=== PATIENT | male | born 1950 | race Caucasian/White ===

== ENCOUNTER 2023-02-25 22:51 | Inpatient (IN) ==
--- NOTE | 2023-02-25 23:10 | Emergency Department Note ---
History of Present Illness General Chief complaint: Weakness Stated complaint: INCREASED WEAKNESS/FALLS/ HEAD INJURY Time Seen by Provider: 02/25/23 22:53 History of Present Illness 72-year-old male presents emergency department he has a history of Parkinson's he states has been generally weak for the past 2 days. Patient states that he has had 3 falls in the past 2 days. Patient typically uses a cane or walker and a wheelchair at home. Patient states that he fell this evening and hit his head. Patient denies a headache denies numbness or tingling denies neck pain. Patient is not on blood thinners. Patient states that he felt generally weak. There were no other complaints. No other mitigating or alleviating factors Home Medications Medication Instructions Recorded Confirmed Type aspirin 81 mg tablet,delayed 81 mg PO DAILY 09/27/19 02/26/23 History release (Adult Low Dose Aspirin) capsaicin 0.1 % topical cream 1 appln topical TID 09/27/19 02/26/23 History docusate sodium 100 mg capsule 100 mg PO BID constipation 09/27/19 02/26/23 History fluticasone propionate 50 1 sprays intranasal DAILY allergic 09/27/19 02/26/23 History mcg/actuation nasal rhinitis spray,suspension glucose 4 gram chewable tablet 4 gm PO Q15M PRN glucose 09/27/19 02/26/23 History (Dex4 Glucose) ketoconazole 2 % topical cream 1 appln topical BID 09/27/19 02/26/23 History lidocaine 5 % topical cream 1 appln topical BID PRN Skin 09/27/19 02/26/23 History Cleansing metformin 500 mg tablet 1,000 mg PO BID 09/27/19 02/26/23 History multivitamin 1 tab PO DAILY supplementation 09/27/19 02/26/23 History cholecalciferol (vitamin D3) 25 2,000 unit PO DAILY 10/14/22 02/26/23 History mcg (1,000 unit) capsule duloxetine 20 mg capsule,delayed 20 mg PO BID 10/14/22 02/26/23 History release empagliflozin 10 mg tablet 10 mg PO DAILY 10/14/22 02/26/23 History omeprazole 20 mg capsule,delayed 20 mg PO DAILY 10/14/22 02/26/23 History release quetiapine 100 mg tablet (Seroquel) 50 mg PO HS 10/14/22 02/26/23 History ropinirole 0.25 mg tablet 0.25 mg PO BID #60 tabs 10/14/22 02/26/23 Rx semaglutide (weight loss) 0.5 0.5 mg subcut Q7D 10/14/22 02/26/23 History mg/0.5 mL subcutaneous pen injector carbidopa 25 mg-levodopa 100 mg 2 tab PO QID 90 days #720 tabs 12/20/22 02/26/23 Rx tablet acetaminophen 325 mg capsule 650 mg PO TID PRN Pain 02/06/23 02/26/23 History (Tylenol) albuterol sulfate 90 mcg/actuation 2 inh inhalation Q6H PRN Shortness 02/06/23 02/26/23 History breath activated powder inhaler Of Breath Or Wheezing diclofenac sodium 1 % topical gel 4 g topical QID PRN Pain 02/06/23 02/26/23 History (Arthritis Pain (diclofenac)) food supplemt, lactose-reduced 1 ea PO DAILY 02/06/23 02/26/23 History (Ensure oral liquid) gabapentin 100 mg capsule 100 mg PO .COMPLEX 02/06/23 02/26/23 History lactulose 10 gram/15 mL (15 mL) 20 g PO BID PRN .. 02/06/23 02/26/23 History oral solution lisinopril 5 mg tablet 5 mg PO DAILY 02/06/23 02/26/23 History magnesium oxide 420 mg tablet 420 mg PO DAILY 02/06/23 02/26/23 History metoprolol succinate 25 mg 25 mg PO DAILY 02/06/23 02/26/23 History tablet,extended release 24 hr nut.tx.gluc.intol,lac-free,soy 1 ea PO DAILY 02/06/23 02/26/23 History (Glucerna oral liquid) sildenafil 100 mg tablet 100 mg PO DAILY PRN erectile 02/06/23 02/26/23 History dysfunction simvastatin 80 mg tablet 40 mg PO DAILY 02/06/23 02/26/23 History tizanidine 4 mg capsule 2 mg PO TID PRN back pain 02/06/23 02/26/23 History Allergies Allergy/AdvReac Type Severity Reaction Status Date / Time cefuroxime AdvReac Unknown Unknown Verified 02/26/23 01:20 fluphenazine [From Prolixin] AdvReac Unknown Unknown Verified 02/26/23 01:20 Past Med/Surg History Medical History (Updated 02/26/23 @ 00:34 by Valente Rollins DO) Bipolar disorder Cervical spinal stenosis Diabetes mellitus Erectile dysfunction GERD (gastroesophageal reflux disease) Hyperlipidemia Insomnia Lung cancer Mild cognitive impairment Paranoid schizophrenia Tremor Surgical History S/P colonoscopy Family History Other Adopted child No pertinent family history Social History Smoking Status: Former smoker Preferred Language: Belarusian Feels Safe at Home: Yes Review of Systems A total of 10 systems reviewed and were otherwise negative Cardiovascular: no chest pain Gastrointestinal: no abdominal pain Musculoskeletal: no back pain Neurologic: + generalized weakness and + tremor(s) Physical Exam Vital Signs Vital Signs - 24 hr 02/25/23 23:04 02/25/23 23:04 02/25/23 23:04 Temperature 36.9 C Temperature Source Temporal Artery Scan Pulse Rate 82 Pulse Rate [Right Finger] 81 Respiratory Rate 24 17 Respiratory Effort / Characteristics Non-Labored Spontaneous Respiratory Depth Normal Blood Pressure 130/104 H Blood Pressure [Right Arm] Blood Pressure Mean 112 Blood Pressure Mean [Right Arm] Pulse Oximetry 96 96 96 Oxygen Delivery Method Room Air Room Air Room Air Sepsis Recent Fever Within 48 Hours No Sepsis New/Unexplained Change in Mental Status N/A Sepsis Action Taken by Nursing No Action Required 02/25/23 22:58 02/26/23 00:22 02/26/23 00:26 Temperature Temperature Source Pulse Rate 76 Pulse Rate [Right Finger] 86 Respiratory Rate 18 Respiratory Effort / Characteristics Respiratory Depth Blood Pressure Blood Pressure [Right Arm] 115/74 Blood Pressure Mean Blood Pressure Mean [Right Arm] 87 Pulse Oximetry 92 Oxygen Delivery Method Sepsis Recent Fever Within 48 Hours Sepsis New/Unexplained Change in Mental Status Sepsis Action Taken by Nursing 02/26/23 01:05 Temperature Temperature Source Pulse Rate Pulse Rate [Right Finger] 73 Respiratory Rate 16 Respiratory Effort / Characteristics Respiratory Depth Blood Pressure Blood Pressure [Right Arm] 105/59 L Blood Pressure Mean Blood Pressure Mean [Right Arm] 74 Pulse Oximetry 93 Oxygen Delivery Method Sepsis Recent Fever Within 48 Hours Sepsis New/Unexplained Change in Mental Status Sepsis Action Taken by Nursing GENERAL: Patient is awake alert in no acute distress patient is resting comfortably and showing no signs of anxiety EYES: The conjunctivae are clear. The pupils are round and reactive. EARS, NOSE, MOUTH AND THROAT: The nose is without any evidence of any deformity. Mucous membranes are moist. Tongue is midline. Head exam reveals an abrasion to the forehead with a small area of hematoma NECK: The neck is nontender and supple. RESPIRATORY: Normal respiratory effort is noted there is no evidence of wheezing rhonchi or rales CARDIOVASCULAR: Regular rate and rhythm noted there no murmurs rubs or gallops normal S1 normal S2. GASTROINTESTINAL: The abdomen is soft. Abdomen is nontender. Rectal exam the patient was heme-negative with normal-appearing stool BACK: No midline tenderness or or step-off noted range of motion in flexion extension as well as rotation no signs of muscle spasm noted MUSCULOSKELETAL/EXTREMITIES: There is no evidence of gross deformity full range of motion is noted in the hips and shoulders. SKIN: There is no obvious evidence of any rash. There are no petechiae, pallor or cyanosis noted. NEUROLOGIC: Patient is awake alert and oriented x3 strength is symmetric; GCS of 15 Course Reevaluation(s) Reevaluation #1: Patient was given IV fluids patient remained stable condition throughout emergency department evaluation Time: 01:02 Consultations Consultation #1: Case was discussed with the [facility] Hospitalist for admission Time: 01:02 Administered Medications Discontinued Medications Sodium Chloride (Nss 1000ml) 1,000 mls @ 999 mls/hr IV .Q1H1M ONE Stop: 02/26/23 00:46 Last Infusion: 02/26/23 01:04 Dose: 0 mls/hr Documented By: Admin: 02/26/23 00:10 Dose: 999 mls/hr Documented By: TBS Critical Care Time Critical Care Time: Yes Total Critical Care Time: 35 I have personally spent greater than 35 minutes of critical care time in the direct management of this patient. This includes bedside care, interpretation of diagnostic studies, and testing, discussion with consultants, patient, and family members, and other required patient management activities. These minutes are in excess of all separately billable procedures. Medical Decision Making Medical Records Attestation: I reviewed the patient's medical records. Home Medications Current Medication List: was personally reviewed by me Laboratory Data Attestation: I reviewed the patient's lab results. Patient had repeat CBC that shows anemia, patient has elevated BUN, elevated blood sugar as interpreted by me 02/25/23 23:00 02/25/23 23:00 Lab Results 02/25/23 02/25/23 02/25/23 Range/Units 23:00 23:00 23:00 WBC 12.29 H (4.8-10.8) K/ul RBC 2.38 L (4.70-6.10) M/uL Hgb 7.4 L (14.0-18.0) g/dl Hct 22.7 L (42.0-52.0) % MCV 95.4 (80.0-100.0) fL MCH 31.1 (25.0-34.0) pg MCHC 32.6 (32.0-36.0) g/dL RDW Std Deviation 49.3 H (36.4-46.3) fL RDW Coeff of Angela 14.6 H (11.5-14.5) % Plt Count 281 (130-400) K/uL MPV 10.8 (9.4-12.4) fL Immature Gran % (Auto) 0.7 % Neut % (Auto) 84.6 % Lymph % (Auto) 8.7 % [place] % (Auto) 4.6 % Eos % (Auto) 0.8 % Baso % (Auto) 0.6 % Neut # (Auto) 10.40 H (1.40-6.50) K/uL Lymph # (Auto) 1.07 L (1.2-3.4) K/uL [place] # (Auto) 0.57 (0.11-0.59) K/uL Eos # (Auto) 0.10 (0-0.50) K/uL Baso # (Auto) 0.07 (0-0.2) K/uL Immature Gran # (Auto) 0.08 (0.01-0.20) K/uL Absolute Nucleated RBC 0.02 (0-0.12) K/uL Nucleated RBC % (auto) 0.2 % Ovalocytes 1+ PT (9.0-12.0) Seconds INR (0.9-1.1) Sodium 134 L (136-145) mmol/L Potassium 5.0 (3.5-5.1) mmol/L Chloride 100 (98-107) mmol/L Carbon Dioxide 23 (21-32) mmol/L Anion Gap 11 (3-11) BUN 42 H (6-23) mg/dl Creatinine 1.00 (0.6-1.4) mg/dl Est Cr Clr Drug Dosing 64.5 ml/min Est GFR ( Amer) 88.0 ml/min Est GFR (Non-Af Amer) 75.9 ml/min BUN/Creatinine Ratio 42.0 H (10-20) Glucose 275 H (70-99(Fasting)) mg/dl Calcium 9.6 (8.6-10.3) mg/dl Magnesium 1.6 L (1.7-2.4) mg/dl Total Bilirubin 0.3 (0.2-1.0) mg/dl Direct Bilirubin 0.0 (0-0.2) mg/dl AST 20 (13-39) U/L ALT 9 (7-52) U/L Alkaline Phosphatase 41 (34-104) U/L Troponin I High Sens 33.9 H (0-20) pg/ml Total Protein 6.3 (6.0-8.3) gm/dl Albumin 3.8 (3.4-5.0) gm/dl Procalcitonin < 0.05 (0-0.5) ng/ml SARS-CoV-2, RNA, NAAT (NEGATIVE) 02/25/23 02/26/23 02/26/23 Range/Units 23:03 00:03 00:03 WBC 13.13 H (4.8-10.8) K/ul RBC 2.25 L (4.70-6.10) M/uL Hgb 7.2 L (14.0-18.0) g/dl Hct 21.6 L (42.0-52.0) % MCV 96.0 (80.0-100.0) fL MCH 32.0 (25.0-34.0) pg MCHC 33.3 (32.0-36.0) g/dL RDW Std Deviation 49.3 H (36.4-46.3) fL RDW Coeff of Angela 14.6 H (11.5-14.5) % Plt Count 263 (130-400) K/uL MPV 10.8 (9.4-12.4) fL Immature Gran % (Auto) 0.8 % Neut % (Auto) 85.9 % Lymph % (Auto) 8.9 % [place] % (Auto) 3.5 % Eos % (Auto) 0.3 % Baso % (Auto) 0.6 % Neut # (Auto) 11.28 H (1.40-6.50) K/uL Lymph # (Auto) 1.17 L (1.2-3.4) K/uL [place] # (Auto) 0.46 (0.11-0.59) K/uL Eos # (Auto) 0.04 (0-0.50) K/uL Baso # (Auto) 0.08 (0-0.2) K/uL Immature Gran # (Auto) 0.10 (0.01-0.20) K/uL Absolute Nucleated RBC (0-0.12) K/uL Nucleated RBC % (auto) % Ovalocytes 1+ PT 12.4 H (9.0-12.0) Seconds INR 1.1 (0.9-1.1) Sodium (136-145) mmol/L Potassium (3.5-5.1) mmol/L Chloride (98-107) mmol/L Carbon Dioxide (21-32) mmol/L Anion Gap (3-11) BUN (6-23) mg/dl Creatinine (0.6-1.4) mg/dl Est Cr Clr Drug Dosing ml/min Est GFR ( Amer) ml/min Est GFR (Non-Af Amer) ml/min BUN/Creatinine Ratio (10-20) Glucose (70-99(Fasting)) mg/dl Calcium (8.6-10.3) mg/dl Magnesium (1.7-2.4) mg/dl Total Bilirubin (0.2-1.0) mg/dl Direct Bilirubin (0-0.2) mg/dl AST (13-39) U/L ALT (7-52) U/L Alkaline Phosphatase (34-104) U/L Troponin I High Sens (0-20) pg/ml Total Protein (6.0-8.3) gm/dl Albumin (3.4-5.0) gm/dl Procalcitonin (0-0.5) ng/ml SARS-CoV-2, RNA, NAAT POSITIVE A* (NEGATIVE) Imaging Data Attestation: I personally reviewed and interpreted this imaging study as follows: My Impression: Chest x-ray interpreted by me patient is rotated, there is no obvious infiltrate or effusion no pneumothorax no rib fractures normal mediastinum CT of the brain per my interpretation is negative for intracranial hemorrhage Radiologist's Impression: Head CT 02/25/23 23:45 Exam(s): CT HEAD Without Contrast EXAM: CT Head Without Intravenous Contrast CLINICAL HISTORY: Reason for exam: head trauma. TECHNIQUE: Axial computed tomography images of the head/brain without intravenous contrast. CTDI is 38.97 mGy and DLP is 625.8 mGy-cm. Automated exposure control was utilized for the study. A dose lowering technique was utilized adhering to the principles of ALARA. COMPARISON: Dated 01/29/20 FINDINGS: Brain: The cerebral and cerebellar sulci are mildly prominent consistent with mild brain atrophy. There are a few areas of decreased attenuation in the deep cerebral white matter consistent with mild small vessel ischemic/degenerative changes. No hemorrhage. Ventricles: Unremarkable. No ventriculomegaly. Bones/joints: Unremarkable. No acute fracture. Soft tissues: Unremarkable. Vasculature: Atherosclerotic disease. Sinuses: Unremarkable as visualized. No acute sinusitis. Mastoid air cells: Unremarkable as visualized. No mastoid effusion. IMPRESSION: No acute findings in the head/brain. Electronically signed by: Vidal Guy MD 02/26/23 01:14 AM ECG Data Attestation: I personally reviewed and interpreted this ECG as follows: Additional Comments: EKG interpreted by me normal sinus rhythm rate of 82 left axis deviation right bundle branch block no obvious ST segment elevation or depression as interpreted by me Treatments ordered by me, interpreted as normal sinus rhythm rate of 80 MDM Narrative Medical decision making differential diagnosis includes fall, head trauma, electrolyte abnormality, occult infection Plan is to check labs, CT, observe EMS medical report was reviewed by me Patient was found to be anemic had heme-negative Hemoccult has an elevated BUN elevated blood sugar and is COVID-positive. Patient will be admitted for fall with anemia and hyponatremia and hyperglycemia Impression & Plan Anemia, Weakness, Fall, COVID-19, Acute dehydration, Acute hyperglycemia Discharge Plan Visit Data Chief Complaint: Weakness Stated Complaint: INCREASED WEAKNESS/FALLS/ HEAD INJURY ED Provider: Valente Rollins Discharge Problem: Anemia, Weakness, Fall, COVID-19, Acute dehydration, Acute hyperglycemia Patient Disposition: Admitted As Inpatient Forms Stand Alone Forms: My [facility] Prescriptions Prescriptions: No Action carbidopa-levodopa 25-100 mg tablet 2 tab PO QID 90 Days Qty: 720 3RF magnesium oxide 420 mg tablet 420 mg PO DAILY lisinopril 5 mg tablet 5 mg PO DAILY Ensure Liquid 1 ea PO DAILY Glucerna Liquid 1 ea PO DAILY acetaminophen [Tylenol] 325 mg capsule 650 mg PO TID PRN (Reason: Pain) diclofenac sodium [Arthritis Pain (diclofenac)] 1 % gel 4 g topical QID PRN (Reason: Pain) Rx Instructions: apply to single knee, ankle, foot; for foot includes sole/toes/top of foot lactulose 10 gram/15 mL (15 mL) solution 20 g PO BID PRN (Reason: ..) albuterol sulfate 90 mcg/actuation aerosol powdr breath activated 2 inh inhalation Q6H PRN (Reason: Shortness Of Breath Or Wheezing) quetiapine [Seroquel] 100 mg tablet 50 mg PO HS omeprazole 20 mg capsule,delayed release(DR/EC) 20 mg PO DAILY duloxetine 20 mg capsule,delayed release(DR/EC) 20 mg PO BID empagliflozin 10 mg tablet 10 mg PO DAILY semaglutide (weight loss) 0.5 mg/0.5 mL pen injector 0.5 mg subcut Q7D Rx Instructions: Take q mon ropinirole 0.25 mg tablet 0.25 mg PO BID Qty: 60 5RF gabapentin 100 mg capsule 100 mg PO .COMPLEX Rx Instructions: 600mg QAM 600MG in the afternoon and 900mg QPM metoprolol succinate 25 mg tablet extended release 24 hr 25 mg PO DAILY simvastatin 80 mg tablet 40 mg PO DAILY aspirin [Adult Low Dose Aspirin] 81 mg tablet,delayed release (DR/EC) 81 mg PO DAILY capsaicin 0.1 % cream 1 appln TOP TID docusate sodium 100 mg capsule 100 mg PO BID fluticasone propionate 50 mcg/actuation spray,suspension 1 sprays INTNAS DAILY glucose [Dex4 Glucose] 4 gram tablet,chewable 4 gm PO Q15M PRN (Reason: glucose) ketoconazole 2 % cream 1 appln TOP BID lidocaine 5 % cream 1 appln TOP BID PRN (Reason: Skin Cleansing) metformin 500 mg tablet 1,000 mg PO BID multivitamin Tablet 1 tab PO DAILY cholecalciferol (vitamin D3) 25 mcg (1,000 unit) capsule 2,000 unit PO DAILY sildenafil 100 mg tablet 100 mg PO DAILY PRN (Reason: erectile dysfunction) tizanidine 4 mg capsule 2 mg PO TID PRN (Reason: back pain) Referrals Referrals: Goldie Watkins PA-C [Primary Care Provider] -
[2023-02-25 23:29] LABS: Basophils # (auto) 0.07 K/uL (0-0.2); Basophils % (auto) 0.6 %; Eosinophils % (auto) 0.8 %; Hematocrit (blood only) 22.7 % (42.0-52.0); Hemoglobin 7.4 g/dl (14.0-18.0); Immature Granulocytes # (auto) 0.08 K/uL (0.01-0.20); Immature Granulocytes % (auto) 0.7 %; Lymphocytes # (auto) 1.07 K/uL (1.2-3.4); Lymphocytes % (auto) 8.7 %; Mean Corpuscular Hemoglobin 31.1 pg (25.0-34.0); Mean Corpuscular Hgb Conc 32.6 g/dL (32.0-36.0); Mean Corpuscular Volume 95.4 fL (80.0-100.0); Mean Platelet Volume 10.8 fL (9.4-12.4); Monocytes # (auto) 0.57 K/uL (0.11-0.59); Monocytes % (auto) 4.6 %; Neutrophils % (auto) 84.6 %; Nucleated RBC # (auto) 0.02 K/uL (0-0.12); Nucleated RBC % (auto) 0.2 %; Platelet Count 281 K/uL (130-400); RDW Coefficient of Variation 14.6 % (11.5-14.5); RDW Standard Deviation 49.3 fL (36.4-46.3); Red Blood Count 2.38 M/uL (4.70-6.10); White Blood Count 12.29 K/ul (4.8-10.8)
[2023-02-25 23:44] LABS: Albumin Level 3.8 gm/dl (3.4-5.0); Bilirubin,Total 0.3 mg/dl (0.2-1.0); Calcium 9.6 mg/dl (8.6-10.3); Creatinine Clr Calc Pharmacy 64.5 ml/min; Est GFR (Non-African American) 75.9 ml/min; Magnesium 1.6 mg/dl (1.7-2.4); Total Protein 6.3 gm/dl (6.0-8.3)
[2023-02-25] MEDS ORDERED: SODIUM CHLORIDE 0.9% 1000ML 1,000 ML IV ONE (23:46)
[2023-02-25 23:50] LABS: Troponin I High Sensitivity 33.9 pg/ml (0-20)
[2023-02-26 00:01] LABS: Ovalocytes 1+
[2023-02-26 00:30] LABS: Basophils # (auto) 0.08 K/uL (0-0.2); Basophils % (auto) 0.6 %; Eosinophils # (auto) 0.04 K/uL (0-0.50); Eosinophils % (auto) 0.3 %; Hematocrit (blood only) 21.6 % (42.0-52.0); Hemoglobin 7.2 g/dl (14.0-18.0); Immature Granulocytes % (auto) 0.8 %; Lymphocytes # (auto) 1.17 K/uL (1.2-3.4); Lymphocytes % (auto) 8.9 %; Mean Corpuscular Hgb Conc 33.3 g/dL (32.0-36.0); Mean Platelet Volume 10.8 fL (9.4-12.4); Monocytes # (auto) 0.46 K/uL (0.11-0.59); Monocytes % (auto) 3.5 %; Neutrophils # (auto) 11.28 K/uL (1.40-6.50); Neutrophils % (auto) 85.9 %; Platelet Count 263 K/uL (130-400); RDW Coefficient of Variation 14.6 % (11.5-14.5); RDW Standard Deviation 49.3 fL (36.4-46.3); Red Blood Count 2.25 M/uL (4.70-6.10); White Blood Count 13.13 K/ul (4.8-10.8)
[2023-02-26 01:07] LABS: Ovalocytes 1+
[2023-02-26 01:11] LABS: INR 1.1 (0.9-1.1); Prothrombin Time 12.4 Seconds (9.0-12.0)
--- NOTE | 2023-02-26 01:15 | CT Scan Report ---
Exam(s): CT HEAD Without Contrast EXAM: CT Head Without Intravenous Contrast CLINICAL HISTORY: Reason for exam: head trauma. TECHNIQUE: Axial computed tomography images of the head/brain without intravenous contrast. CTDI is 38.97 mGy and DLP is 625.8 mGy-cm. Automated exposure control was utilized for the study. A dose lowering technique was utilized adhering to the principles of ALARA. COMPARISON: Dated 01/29/20 FINDINGS: Brain: The cerebral and cerebellar sulci are mildly prominent consistent with mild brain atrophy. There are a few areas of decreased attenuation in the deep cerebral white matter consistent with mild small vessel ischemic/degenerative changes. No hemorrhage. Ventricles: Unremarkable. No ventriculomegaly. Bones/joints: Unremarkable. No acute fracture. Soft tissues: Unremarkable. Vasculature: Atherosclerotic disease. Sinuses: Unremarkable as visualized. No acute sinusitis. Mastoid air cells: Unremarkable as visualized. No mastoid effusion. IMPRESSION: No acute findings in the head/brain. Electronically signed by: Vidal Guy MD 02/26/23 01:14 AM
--- NOTE | 2023-02-26 02:40 | CT Scan Report ---
Exam(s): CT ABDOMEN + PELVIS Without Contrast EXAM: CT Abdomen and Pelvis Without Intravenous Contrast CLINICAL HISTORY: Reason for exam: anemia. TECHNIQUE: Axial computed tomography images of the abdomen and pelvis without intravenous contrast. CTDI is 13.44 mGy and DLP is 702.62 mGy-cm. Automated exposure control was utilized for the study. A dose lowering technique was utilized adhering to the principles of ALARA. COMPARISON: No relevant prior studies available. FINDINGS: Lung bases: Unremarkable. No mass. No consolidation. Pleural space: Small right pleural effusion. ABDOMEN: Liver: Unremarkable. Gallbladder and bile ducts: Unremarkable. No calcified stones. No ductal dilation. Pancreas: Unremarkable. No ductal dilation. Spleen: Unremarkable. No splenomegaly. Adrenals: Unremarkable. No mass. Kidneys and ureters: The right kidney is malrotated. There are multiple nonobstructing right-sided intrarenal calculi. Stomach and bowel: There is significant distention of the stomach with oral contents. No mucosal thickening. PELVIS: Appendix: No findings to suggest acute appendicitis. Bladder: Unremarkable. No stones. Reproductive: Unremarkable as visualized. ABDOMEN and PELVIS: Intraperitoneal space: Unremarkable. No free air. No significant fluid collection. Bones/joints: Advanced degenerative disease of the thoracolumbar spine. No acute fracture. No dislocation. Soft tissues: Unremarkable. Vasculature: There is diffuse atherosclerotic calcification of the aorta and its major branch vessels. No abdominal aortic aneurysm. Lymph nodes: Unremarkable. No enlarged lymph nodes. IMPRESSION: No acute findings in the abdomen or pelvis. Electronically signed by: Vidal Guy MD 02/26/23 02:39 AM
--- NOTE | 2023-02-26 03:07 | Emergency Department Note ---
ED Visit Note Patient had an elevated lactate of 5.5 at the time of admission. This lab was not seen by me initially prior to admission. Patient had received 1 L of fluid and there is a repeat lactate level pending. Sepsis however. Case was discussed with the [facility] hospitalist for admission. Patient did receive another CT abdomen pelvis per the hospitalist request and the patient was deciding whether or not he wanted to be admitted. Patient is COVID-positive anemic dehydrated and hyperglycemic. .
--- NOTE | 2023-02-26 05:16 | History & Physical Report ---
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: Plan Progressive generalized weakness/increased frequency of falls/parkinsonism/neurologic gait disorder- Patient has been following with neurology in the outpatient setting Sinemet was decreased on 02/06/2023 Neurology consult not available till Monday, 02/27 Abnormal weight loss- Patient reports 30 pound weight loss since September At least in part is likely related to diabetic medications and diabetic control In particular the addition of Ozempic has resulted in significant weight loss per the patient and 's thoughts We will hold his oral medications of empagliflozin, metformin and semaglutide Place on Accu-Cheks with NovoLog SSI He likely should be started on long-acting insulin with a NovoLog SSI coverage Follow-up with endocrinology would be advisable Anemia- Hemoglobin 7.2 today, was 7.4 yesterday, and most recent otherwise on 11/01/2020 was 13.3 In association with 30 pound weight loss, would be suggestive of malnutrition, which may be at least in part pharmaceutically related with his diabetic medication regimen, and uncontrolled likely type 1 diabetes. Hemoccult testing negative in ED We will consult hematology and gastroenterology for their opinions Vital signs are stable with heart rate 72 and blood pressure 121/73 Elevated troponin- Troponin 33.9 on admission The patient will be admitted to telemetry for serial cardiac enzymes, serial EKG's, cardiac rhythm monitoring and a 2-D echocardiogram with Dopplers. Likely type II, supply/demand mismatch Lactic acidosis- Late report of lactate was 5.5, with improvement to 4.7, likely associated with uncontrolled diabetes Paranoid schizophrenia/anxiety depression/Parkinson's- Continue carbidopa levodopa, duloxetine, gabapentin and Seroquel History of Present Illness Chief Complaint: The patient presents to the emergency department with his , with complaint of increased general weakness and 3 falls over the past 2 days, reported that he typically uses a cane or walker and a wheelchair at home. Primary Care Provider: Goldie T. June, PA-C The patient is a 72-year-old male with a past medical history including Parkinson's, lung cancer, right lower lobe lobectomy, left upper lobe lobectomy, recent CT scan of chest at the [facility] negative for tumor recurrence, tremor, bipolar disorder, diabetes mellitus, GERD, hyperlipidemia, mild cognitive impairment, paranoid schizophrenia and a 30 pound weight loss since September. Significant laboratories: Troponin 33.9, COVID-19 positive, WBC 13.13, hemoglobin 7.2, hematocrit 21.6, glucose 275, lactate 5.5. Chest x-ray negative, CT scan of head negative, CT scan abdomen pelvis negative. Allergies Allergy/AdvReac Type Severity Reaction Status Date / Time cefuroxime AdvReac Unknown Unknown Verified 02/26/23 01:20 fluphenazine [From Prolixin] AdvReac Unknown Unknown Verified 02/26/23 01:20 Home Medications Medication Instructions Recorded Confirmed Type aspirin 81 mg tablet,delayed 81 mg PO DAILY 09/27/19 02/26/23 History release (Adult Low Dose Aspirin) capsaicin 0.1 % topical cream 1 appln topical TID 09/27/19 02/26/23 History docusate sodium 100 mg capsule 100 mg PO BID constipation 09/27/19 02/26/23 History fluticasone propionate 50 1 sprays intranasal DAILY allergic 09/27/19 02/26/23 History mcg/actuation nasal rhinitis spray,suspension glucose 4 gram chewable tablet 4 gm PO Q15M PRN glucose 09/27/19 02/26/23 History (Dex4 Glucose) ketoconazole 2 % topical cream 1 appln topical BID 09/27/19 02/26/23 History lidocaine 5 % topical cream 1 appln topical BID PRN Skin 09/27/19 02/26/23 History Cleansing metformin 500 mg tablet 1,000 mg PO BID 09/27/19 02/26/23 History multivitamin 1 tab PO DAILY supplementation 09/27/19 02/26/23 History cholecalciferol (vitamin D3) 25 2,000 unit PO DAILY 10/14/22 02/26/23 History mcg (1,000 unit) capsule duloxetine 20 mg capsule,delayed 20 mg PO BID 10/14/22 02/26/23 History release empagliflozin 10 mg tablet 10 mg PO DAILY 10/14/22 02/26/23 History omeprazole 20 mg capsule,delayed 20 mg PO DAILY 10/14/22 02/26/23 History release quetiapine 100 mg tablet (Seroquel) 50 mg PO HS 10/14/22 02/26/23 History ropinirole 0.25 mg tablet 0.25 mg PO BID #60 tabs 10/14/22 02/26/23 Rx semaglutide (weight loss) 0.5 0.5 mg subcut Q7D 10/14/22 02/26/23 History mg/0.5 mL subcutaneous pen injector carbidopa 25 mg-levodopa 100 mg 2 tab PO QID 90 days #720 tabs 12/20/22 02/26/23 Rx tablet acetaminophen 325 mg capsule 650 mg PO TID PRN Pain 02/06/23 02/26/23 History (Tylenol) albuterol sulfate 90 mcg/actuation 2 inh inhalation Q6H PRN Shortness 02/06/23 02/26/23 History breath activated powder inhaler Of Breath Or Wheezing diclofenac sodium 1 % topical gel 4 g topical QID PRN Pain 02/06/23 02/26/23 History (Arthritis Pain (diclofenac)) food supplemt, lactose-reduced 1 ea PO DAILY 02/06/23 02/26/23 History (Ensure oral liquid) gabapentin 100 mg capsule 100 mg PO .COMPLEX 02/06/23 02/26/23 History lactulose 10 gram/15 mL (15 mL) 20 g PO BID PRN .. 02/06/23 02/26/23 History oral solution lisinopril 5 mg tablet 5 mg PO DAILY 02/06/23 02/26/23 History magnesium oxide 420 mg tablet 420 mg PO DAILY 02/06/23 02/26/23 History metoprolol succinate 25 mg 25 mg PO DAILY 02/06/23 02/26/23 History tablet,extended release 24 hr nut.tx.gluc.intol,lac-free,soy 1 ea PO DAILY 02/06/23 02/26/23 History (Glucerna oral liquid) sildenafil 100 mg tablet 100 mg PO DAILY PRN erectile 02/06/23 02/26/23 History dysfunction simvastatin 80 mg tablet 40 mg PO DAILY 02/06/23 02/26/23 History tizanidine 4 mg capsule 2 mg PO TID PRN back pain 02/06/23 02/26/23 History Past Med/Surg History Medical History (Updated 02/26/23 @ 05:27 by Antohny Howell MD) Bipolar disorder Cervical spinal stenosis Diabetes mellitus Erectile dysfunction GERD (gastroesophageal reflux disease) Hyperlipidemia Insomnia Lung cancer Mild cognitive impairment Neurologic gait disorder Paranoid schizophrenia Tremor Surgical History S/P colonoscopy Family History Other Adopted child No pertinent family history Social History Smoking Status: Former smoker Preferred Language: Czech Feels Safe at Home: Yes Review of Systems Review of Systems: The patient denies chest pain, palpitations, shortness of breath, dyspnea on exertion, cough, lower extremity swelling, sore throat, fevers, chills, sweats, nausea, vomiting, diarrhea , constipation, abdominal pain, pelvic pain, blood in urine or stool, dysuria, urinary frequency or urgency, lightheadedness, dizziness, headache, memory loss, loss of consciousness, abnormal bruising or bleeding, imbalance, focal weakness, numbness or tingling in arms or legs, back or neck pain, or night sweats. The review of systems is otherwise negative other than for that already noted above, and at least 10 systems have been reviewed. Physical Exam Physical Exam: The patient is awake, alert and oriented 3, looks malnourished, normocephalic and atraumatic, lying in bed and in no acute distress. HEENT--PERRL, EOMI, mucous membranes and oropharynx dry. Neck--supple. No JVD. No bruits. Thyroid normal, trachea midline, no adenopathy. Heart--normal S1 and S2. No murmurs, rubs or gallops. Lungs--clear bilaterally, no respiratory distress, no accessory muscle use. Abdomen--normal bowel sounds and soft. Nontender. Nondistended, no hernias or masses, no organomegaly. Extremities--no cyanosis or clubbing. No edema. Dermatologic--normal skin turgor, normal color, no abnormal lymph nodes, no rash. Neurologic--cranial nerves II through XII grossly intact. Rheumatologic--normal range of motion. Psychiatric--normal affect. Results & Data Results & Data Vital Signs (Past 12 Hours) Vital Signs Temp Pulse Pulse Resp BP BP Pulse Ox 02/26/23 04:24 95 02/26/23 04:12 72 15 98 02/26/23 03:23 69 18 132/77 98 02/26/23 04:18 121/73 02/26/23 02:54 69 02/26/23 02:39 75 16 94 02/26/23 02:00 88 16 122/66 97 02/26/23 01:05 73 16 105/59 L 93 02/26/23 00:26 115/74 02/26/23 00:22 86 18 92 02/25/23 22:58 76 02/25/23 23:04 81 17 96 02/25/23 23:04 96 02/25/23 23:04 36.9 C 82 24 130/104 H 96 O2 Del Method 02/26/23 04:24 Room Air 02/26/23 04:12 Room Air 02/26/23 03:23 Room Air 02/26/23 04:18 02/26/23 02:54 02/26/23 02:39 Room Air 02/26/23 02:00 Room Air 02/26/23 01:05 02/26/23 00:26 02/26/23 00:22 02/25/23 22:58 02/25/23 23:04 Room Air 02/25/23 23:04 Room Air 02/25/23 23:04 Room Air Laboratory Results Laboratory Results WBC 13.13 K/ul (4.8-10.8) H 02/26/23 00:03 RBC 2.25 M/uL (4.70-6.10) L 02/26/23 00:03 Hgb 7.2 g/dl (14.0-18.0) L 02/26/23 00:03 Hct 21.6 % (42.0-52.0) L 02/26/23 00:03 MCV 96.0 fL (80.0-100.0) 02/26/23 00:03 MCH 32.0 pg (25.0-34.0) 02/26/23 00:03 MCHC 33.3 g/dL (32.0-36.0) 02/26/23 00:03 RDW Std Deviation 49.3 fL (36.4-46.3) H 02/26/23 00:03 RDW Coeff of Angela 14.6 % (11.5-14.5) H 02/26/23 00:03 Plt Count 263 K/uL (130-400) 02/26/23 00:03 MPV 10.8 fL (9.4-12.4) 02/26/23 00:03 Immature Gran % (Auto) 0.8 % 02/26/23 00:03 Neut % (Auto) 85.9 % 02/26/23 00:03 Lymph % (Auto) 8.9 % 02/26/23 00:03 Otoe % (Auto) 3.5 % 02/26/23 00:03 Eos % (Auto) 0.3 % 02/26/23 00:03 Baso % (Auto) 0.6 % 02/26/23 00:03 Neut # (Auto) 11.28 K/uL (1.40-6.50) H 02/26/23 00:03 Lymph # (Auto) 1.17 K/uL (1.2-3.4) L 02/26/23 00:03 Otoe # (Auto) 0.46 K/uL (0.11-0.59) 02/26/23 00:03 Eos # (Auto) 0.04 K/uL (0-0.50) 02/26/23 00:03 Baso # (Auto) 0.08 K/uL (0-0.2) 02/26/23 00:03 Immature Gran # (Auto) 0.10 K/uL (0.01-0.20) 02/26/23 00:03 Absolute Nucleated RBC 0.02 K/uL (0-0.12) 02/25/23 23:00 Nucleated RBC % (auto) 0.2 % 02/25/23 23:00 Ovalocytes 1+ 02/26/23 00:03 PT 12.4 Seconds (9.0-12.0) H 02/26/23 00:03 INR 1.1 (0.9-1.1) 02/26/23 00:03 Sodium 134 mmol/L (136-145) L 02/25/23 23:00 Potassium 5.0 mmol/L (3.5-5.1) 02/25/23 23:00 Chloride 100 mmol/L (98-107) 02/25/23 23:00 Carbon Dioxide 23 mmol/L (21-32) 02/25/23 23:00 Anion Gap 11 (3-11) 02/25/23 23:00 BUN 42 mg/dl (6-23) H 02/25/23 23:00 Creatinine 1.00 mg/dl (0.6-1.4) 02/25/23 23:00 Est Cr Clr Drug Dosing 64.5 ml/min 02/25/23 23:00 Est GFR ( Amer) 88.0 ml/min 02/25/23 23:00 Est GFR (Non-Af Amer) 75.9 ml/min 02/25/23 23:00 BUN/Creatinine Ratio 42.0 (10-20) H 02/25/23 23:00 Glucose 275 mg/dl (70-99(Fasting)) H 02/25/23 23:00 Lactate 4.7 mmol/L (0.4-2.0) H* 02/26/23 03:04 Calcium 9.6 mg/dl (8.6-10.3) 02/25/23 23:00 Magnesium 1.6 mg/dl (1.7-2.4) L 02/25/23 23:00 Total Bilirubin 0.3 mg/dl (0.2-1.0) 02/25/23 23:00 Direct Bilirubin 0.0 mg/dl (0-0.2) 02/25/23 23:00 AST 20 U/L (13-39) 02/25/23 23:00 ALT 9 U/L (7-52) 02/25/23 23:00 Alkaline Phosphatase 41 U/L (34-104) 02/25/23 23:00 Troponin I High Sens 33.9 pg/ml (0-20) H 02/25/23 23:00 Total Protein 6.3 gm/dl (6.0-8.3) 02/25/23 23:00 Albumin 3.8 gm/dl (3.4-5.0) 02/25/23 23:00 Procalcitonin < 0.05 ng/ml (0-0.5) 02/25/23 23:00 SARS-CoV-2, RNA, NAAT POSITIVE (NEGATIVE) A* 02/25/23 23:03 Blood Type A Positive 02/26/23 00:03 Antibody Screen NEGATIVE 02/26/23 00:[address] 02/25/23 23:45 Exam(s): CT HEAD Without Contrast EXAM: CT Head Without Intravenous Contrast CLINICAL HISTORY: Reason for exam: head trauma. TECHNIQUE: Axial computed tomography images of the head/brain without intravenous contrast. CTDI is 38.97 mGy and DLP is 625.8 mGy-cm. Automated exposure control was utilized for the study. A dose lowering technique was utilized adhering to the principles of ALARA. COMPARISON: Dated 01/29/20 FINDINGS: Brain: The cerebral and cerebellar sulci are mildly prominent consistent with mild brain atrophy. There are a few areas of decreased attenuation in the deep cerebral white matter consistent with mild small vessel ischemic/degenerative changes. No hemorrhage. Ventricles: Unremarkable. No ventriculomegaly. Bones/joints: Unremarkable. No acute fracture. Soft tissues: Unremarkable. Vasculature: Atherosclerotic disease. Sinuses: Unremarkable as visualized. No acute sinusitis. Mastoid air cells: Unremarkable as visualized. No mastoid effusion. IMPRESSION: No acute findings in the head/brain. Electronically signed by: Vidal Guy MD 02/26/23 01:14 AM Abdomen/Pelvis CT 02/26/23 02:07 Exam(s): CT ABDOMEN + PELVIS Without Contrast EXAM: CT Abdomen and Pelvis Without Intravenous Contrast CLINICAL HISTORY: Reason for exam: anemia. TECHNIQUE: Axial computed tomography images of the abdomen and pelvis without intravenous contrast. CTDI is 13.44 mGy and DLP is 702.62 mGy-cm. Automated exposure control was utilized for the study. A dose lowering technique was utilized adhering to the principles of ALARA. COMPARISON: No relevant prior studies available. FINDINGS: Lung bases: Unremarkable. No mass. No consolidation. Pleural space: Small right pleural effusion. ABDOMEN: Liver: Unremarkable. Gallbladder and bile ducts: Unremarkable. No calcified stones. No ductal dilation. Pancreas: Unremarkable. No ductal dilation. Spleen: Unremarkable. No splenomegaly. Adrenals: Unremarkable. No mass. Kidneys and ureters: The right kidney is malrotated. There are multiple nonobstructing right-sided intrarenal calculi. Stomach and bowel: There is significant distention of the stomach with oral contents. No mucosal thickening. PELVIS: Appendix: No findings to suggest acute appendicitis. Bladder: Unremarkable. No stones. Reproductive: Unremarkable as visualized. ABDOMEN and PELVIS: Intraperitoneal space: Unremarkable. No free air. No significant fluid collection. Bones/joints: Advanced degenerative disease of the thoracolumbar spine. No acute fracture. No dislocation. Soft tissues: Unremarkable. Vasculature: There is diffuse atherosclerotic calcification of the aorta and its major branch vessels. No abdominal aortic aneurysm. Lymph nodes: Unremarkable. No enlarged lymph nodes. IMPRESSION: No acute findings in the abdomen or pelvis. Electronically signed by: Vidal Guy MD 02/26/23 02:39 AM Code Status & VTE Plan Code Status Full code VTE Prophylaxis Plan VTE Prophylaxis will be ordered: Yes PG Care Time/CCT Total # of Minutes Spent Total Time Spent with Patient: Total time spent is greater than 50% in coordination of care (as documented) at patient's floor/unit and/or counseling patient: Coding Level of Care Code 30724 INT INP/OBS CARE 3/75MIN Diagnoses Anemia D64.9 Weakness R53.1 COVID-19 U07.1 Fall W19.XXXA Parkinsonism G20 Bipolar disorder F31.9 Diabetes mellitus E11.9 Hyperlipidemia E78.5 Mild cognitive impairment G31.84 Paranoid schizophrenia F20.0 Elevated troponin R79.89 Abnormal weight loss R63.4 Neurologic gait disorder R26.9
[2023-02-26] MEDS ORDERED: GLUCAGON FOR INJ 1 MG VIAL SQ PRN (05:28)
[2023-02-26] MEDS ORDERED: ACETAMINOPHEN 325 MG TAB PO PRN (05:28)
[2023-02-26] MEDS ORDERED: NON-FORMULARY MEDICATION (Sildenafil 100 mg tablet) PO PRN (05:28)
[2023-02-26] MEDS ORDERED: tiZANidine HCL 4 MG TABLET PO PRN (05:28)
[2023-02-26] MEDS ORDERED: GLUCOSE 10 TAB/TUBE PO PRN (05:28)
[2023-02-26] MEDS ORDERED: CARBOHYDRATES FOR HYPOGLYCEMIA PO PRN (05:28)
[2023-02-26] MEDS ORDERED: DEXTROSE 50% 50 ML SYRINGE IV PRN (05:28)
[2023-02-26] MEDS ORDERED: GLUCOSE 40% GEL 15 GM TUBE PO PRN (05:28)
[2023-02-26] MEDS ORDERED: ALBUTEROL HFA 8 GM INHALER INH PRN (05:38)
[2023-02-26] MEDS: SODIUM CHLORIDE 0.9% 1000ML 1,000 ML IV SCH ×2 (05:55→20:03)
[2023-02-26 06:39] LABS: Troponin I High Sensitivity 33.5 pg/ml (0-20)
[2023-02-26 07:16] LABS: Appearance Urine Clear (Clear); Bilirubin Urine Negative (Negative); Blood Urine Negative (Negative); Color Urine Yellow; Glucose Urine UA 3+ (Negative); Ketones Urine 1+ (Negative); Leukocyte Esterase Urine Negative (Negative); Nitrite Urine Negative (Negative); Protein Urine Negative (Negative); Specific Gravity Urine 1.021 (1.000-1.030); Urobilinogen Urine Negative (Negative)
--- NOTE | 2023-02-26 08:47 | XCELERA ---
[id number] \\[id number]
--- NOTE | 2023-02-26 08:58 | XRay Report ---
XR chest 1V portable CLINICAL HISTORY: Sepsis TECHNIQUE: Single frontal radiograph of the chest was obtained. Comparison: Comparison is made to chest radiograph 01/29/2020 FINDINGS: No lines and tubes are seen. The cardiomediastinal silhouette is normal. The lungs are clear. No evid ence of pleural effusion or pneumothorax. IMPRESSION: No acute abnormalities and in particular no radiographic evidence of pneumonia. ACT 112: Negative or not required by law. Electronically signed by: Delio Cam M.D. 02/26/2023 8:56 AM
[2023-02-26] MEDS: DULoxetine HCL 20 MG CAP PO SCH ×2 (09:01→20:06)
[2023-02-26] MEDS: MAGNESIUM OXIDE 400 MG TAB PO SCH (09:01)
[2023-02-26] MEDS: CARBIDOPA/LEVODOPA 25/100MG TAB PO SCH ×4 (09:01→20:04)
[2023-02-26] MEDS: rOPINIRole HCL 0.25 MG TABLET PO SCH ×2 (09:02→20:06)
[2023-02-26] MEDS: GABAPENTIN 600 MG TAB PO SCH ×3 (09:02→20:05)
[2023-02-26] MEDS: SIMVASTATIN 40 MG TAB PO SCH (09:02)
[2023-02-26] MEDS: CHOLECALCIFEROL 1,000 UNITS 25 MCG TAB PO SCH (09:03)
[2023-02-26] MEDS: PANTOprazole 40 MG TAB PO SCH (09:03)
[2023-02-26] MEDS: MULTIVITAMIN TAB PO SCH (09:03)
[2023-02-26] MEDS: METOPROLOL SUCC 25MG EXT REL TAB PO SCH (09:03)
[2023-02-26] MEDS: DOCUSATE SODIUM 100 MG CAP PO SCH ×2 (09:03→20:06)
[2023-02-26] MEDS: INSULIN ASPART PER UNIT CHARGE SC SCH ×4 (09:44→20:41)
--- NOTE | 2023-02-26 10:36 | Hospitalist Progress Note ---
Date of Service February 26, 2023 Assessment & Plan Admission and Anticipated Discharge Date Admission Date: February 26, 2023 Results & Data Results & Data Vital Signs (Past 12 Hours) Vital Signs Temp Pulse Pulse Resp BP BP Pulse Ox 02/26/23 07:00 36.5 C 87 18 103/58 L 97 02/26/23 07:15 78 02/26/23 06:41 78 02/26/23 05:51 36.6 C 103 H 14 130/76 95 02/26/23 04:24 95 02/26/23 04:12 72 15 98 02/26/23 03:23 69 18 132/77 98 02/26/23 04:18 121/73 02/26/23 02:54 69 02/26/23 02:39 75 16 94 02/26/23 02:00 88 16 122/66 97 02/26/23 01:05 73 16 105/59 L 93 02/26/23 00:26 115/74 02/26/23 00:22 86 18 92 02/25/23 22:58 76 02/25/23 23:04 81 17 96 02/25/23 23:04 96 02/25/23 23:04 36.9 C 82 24 130/104 H 96 O2 Del Method 02/26/23 07:00 Room Air 02/26/23 07:15 02/26/23 06:41 02/26/23 05:51 Room Air 02/26/23 04:24 Room Air 02/26/23 04:12 Room Air 02/26/23 03:23 Room Air 02/26/23 04:18 02/26/23 02:54 02/26/23 02:39 Room Air 02/26/23 02:00 Room Air 02/26/23 01:05 02/26/23 00:26 02/26/23 00:22 02/25/23 22:58 02/25/23 23:04 Room Air 02/25/23 23:04 Room Air 02/25/23 23:04 Room Air PG Care Time/CCT Total # of Minutes Spent Total Time Spent with Patient: Total time spent is greater than 50% in coordination of care (as documented) at patient's floor/unit and/or counseling patient: Coding Diagnoses
--- NOTE | 2023-02-26 10:37 | Communication Note ---
Date of Service: February 26, 2023 Please see today's H+P for full assessment and plan except as otherwise stated here: Acute anemia of unknown origin: Differential includes hemolysis, acute blood loss, malignancy-related losses, nutritional. B12, folate, iron studies normal. FOBT normal, no reports per patient of bleeding from any orifice. No clear source of bleeding, reports that he has colonoscopies "every 4 months due to his lung cancer". Patient himself reports he has colonoscopies every 4 months, however his reports it has been at least a few years. reports that she was recently told by patient that he was cancer free, but she does not accompany him to appointments due to him desiring privacy. When asked if he had cancer in his abdomen, he denies this. He reports that his blood work was "good" recently including his blood count, however I do not have those records. Unfortunately [facility] [place] [facility] . I let him know that if his Hgb drops below 7 tomorrow that it will likely be indicated to have blood transfusion before he returns home. He seemed amenable to this plan. GI consult requested. Patient has been overall resistant to care and reports that he will be leaving the hospital tomorrow regardless of overall workup or medical plan. Hemolysis labs pending. Not recently been on heparin. Does take daily aspirin, recommended cessation until evaluation of low Hgb is complete. Leukocytosis: Has had leukocytosis since 2020 of ~12-13, though no results between 2020 and current admission. COVID-19 positive on admission, could account for rise or could be unrelated. Peripheral smear ordered as I am concerned that his cell line derangements, weight loss, etc are potentially indicative of malignancy-related changes. No antibiotics initiated as no clear source of infection. Blood cutures are pending. Patient is hemodynamically stable, no fevers. Lactic acidosis: Possible sepsis 2/2 COVID-19, no other obvious source of infection. However, WBC count has been chronically elevated, and suspect lactic acidosis may be in part due to metformin. Holding this and will discontinue at least temporarily on discharge. Very gentle fluids 80cc/hr through today. Weight loss: reports weight loss of 30 pounds since September 2022, discontinue Ozempic for now given effect on appetite. Patient is not amenable to medication changes such as insulin except under direction of PCP.
[2023-02-26] MEDS ORDERED: PHARMACY GLYCEMIC MGMT CONSULT PRN (12:15)
--- NOTE | 2023-02-26 12:42 | Communication Note ---
Date of Service: February 26, 2023 COVID positive patient with anemia with no active GI bleeding. Will defer physical evaluation due to risk of transmission. I was asked to see Servando Miramontes in consultation secondary to anemia by Dr. Howell. He has an extensive PMHx and usually follows at the [facility], however, he presented to the ER yesterday with complaints of weakness and weight loss. He has a reported weight loss of over 30 pounds this year. Upon arrival to the ER he was noted to have a slight elevation in his WBC count and was anemic with a Hgb of 7.4. He was heme negative in the ER. He was also found to be positive with COVID 19. He underwent a CT scan of the abd/pelvis which was unremarkable. I spoke to him by phone and he reports that he has no acute GI symptoms. He denies any fevers, chills, nausea, vomiting, abdominal pain, diarrhea, constipation, melena, hematemesis, or hematochezia. He states that he last underwent an EGD with Dr. Nye in 2019 and was found to have a Hiatal hernia. His last colonoscopy was through the [facility] approximately 3 years ago per the patient, and he states he has these done every 5 years. He attributes his weight loss to Ozempic therapy. He states that he has tolerated breakfast and lunch today without difficulty. I discussed his case in detail with his nurse as well, and stated that he has not had any GI symptoms or complaints. I would recommend continuing his current therapy and supportive care, and would advise an outpatient GI followup as he has no urgent GI needs at this time. Please contact me with any questions Mo Hancock, DO Gastroenterology
[2023-02-26] MEDS ORDERED: LANTUS PER UNIT CHARGE SC ONE (13:45)
--- NOTE | 2023-02-26 14:05 | Pharmacy Report ---
Pharmacy Glycemic Short Note 2 - Date of Service February 26, 2023 - Glycemic Short BSG Results (Last 24 hours): 02/25/23 02/26/23 02/26/23 23:00 06:59 10:59 Glucose 275 H POC Glucose 233 H 256 H OUTPATIENT ANTIDIABETIC REGIMEN: * Empagliflozin * Metformin * Semaglutide weekly * A1 c = pending ASSESSMENT: * Servando is a 72 yo T2DM who presented with progressive generalized weakness, increased frequency of falls, significant weight loss, and anemia. * His weight loss is being attributed to semaglutide. Per Hospitalist service, they plan to discontinue semaglutide. * Unknown degree of outpatient glycemic control. No A1c in past [place] records. Ordered for tomorrow. * Will order a one time dose of Lantus 0.2 units/kg to be given today. Reassess basal needs on 6/12 am. * Continue current Novolog orders (weight/stress 2-3). Add overnight checks > 200 mg/dL and trending upward. PLAN FOR INPATIENT GLYCEMIC CONTROL: * Hold outpatient oral diabetes medications * Basal insulin * Lantus 15 units SQ x 1 * Bolus insulin * NovoLog per scale ACHS or Q6hrs while NPO * Goal Range: Low 100 mg/dL - High 150 mg/dL * Correction Factor: 25 mg/dL/unit * Nutritional / Prandial insulin per carb ratio of 1 unit per 10 grams CHO consumed
[2023-02-26] MEDS: QUEtiapine FUMARATE 25 MG TABLET PO SCH (20:06)
[2023-02-26] MEDS ORDERED: Nursing to Pharmacy Communication SCH (21:00)
[2023-02-27] MEDS ORDERED: INSULIN ASPART PER UNIT CHARGE SC SCH
[2023-02-27] MEDS: LANTUS PER UNIT CHARGE SC SCH (08:14)
[2023-02-27] MEDS: INSULIN ASPART PER UNIT CHARGE SC SCH ×4 (08:14→20:31)
[2023-02-27] MEDS: MULTIVITAMIN TAB PO SCH (08:21)
[2023-02-27] MEDS: SIMVASTATIN 40 MG TAB PO SCH (08:21)
[2023-02-27] MEDS: rOPINIRole HCL 0.25 MG TABLET PO SCH ×2 (08:21→20:17)
[2023-02-27] MEDS: DOCUSATE SODIUM 100 MG CAP PO SCH ×2 (08:21→20:17)
[2023-02-27] MEDS: CHOLECALCIFEROL 1,000 UNITS 25 MCG TAB PO SCH (08:21)
[2023-02-27] MEDS: METOPROLOL SUCC 25MG EXT REL TAB PO SCH (08:21)
[2023-02-27] MEDS: DULoxetine HCL 20 MG CAP PO SCH ×2 (08:21→20:17)
[2023-02-27] MEDS: MAGNESIUM OXIDE 400 MG TAB PO SCH (08:21)
[2023-02-27] MEDS: PANTOprazole 40 MG TAB PO SCH (08:21)
[2023-02-27] MEDS: CARBIDOPA/LEVODOPA 25/100MG TAB PO SCH ×4 (08:22→20:16)
[2023-02-27] MEDS: GABAPENTIN 600 MG TAB PO SCH ×3 (08:23→20:16)
[2023-02-27 08:47] LABS: Alanine Aminotransferase < 3 U/L (7-52); Albumin Globulin Ratio 1.6 (0.9-2); Albumin Level 3.6 gm/dl (3.4-5.0); Alkaline Phosphatase 35 U/L (34-104); Anion Gap 8 (3-11); Aspartate Aminotransferase 14 U/L (13-39); BUN Creatinine Ratio 38.4 (10-20); Bilirubin,Total 0.4 mg/dl (0.2-1.0); Blood Urea Nitrogen 28 mg/dl (6-23); Calcium 8.3 mg/dl (8.6-10.3); Carbon Dioxide 25 mmol/L (21-32); Chloride 104 mmol/L (98-107); Creatinine Clr Calc Pharmacy 91.1 ml/min; Est GFR (African American) 108.9 ml/min; Globulin 2.3 gm/dl (2.5-4.0); Glucose 153 mg/dl (70-99(Fasting)); Magnesium 1.5 mg/dl (1.7-2.4); Potassium 3.5 mmol/L (3.5-5.1); Sodium 137 mmol/L (136-145); Total Protein 5.9 gm/dl (6.0-8.3)
[2023-02-27 09:10] LABS: Hematocrit (blood only) 17.3 % (42.0-52.0); Hemoglobin 5.6 g/dl (14.0-18.0); Mean Corpuscular Hemoglobin 30.8 pg (25.0-34.0); Mean Corpuscular Hgb Conc 32.4 g/dL (32.0-36.0); Mean Corpuscular Volume 95.1 fL (80.0-100.0); Mean Platelet Volume 10.6 fL (9.4-12.4); Nucleated RBC # (auto) 0.02 K/uL (0-0.12); Nucleated RBC % (auto) 0.2 %; Platelet Count 239 K/uL (130-400); RDW Coefficient of Variation 15.4 % (11.5-14.5); RDW Standard Deviation 49.9 fL (36.4-46.3); Red Blood Count 1.82 M/uL (4.70-6.10); White Blood Count 9.67 K/ul (4.8-10.8)
[2023-02-27 09:13] LABS: Basophils # (auto) 0.06 K/uL (0-0.2); Basophils % (auto) 0.6 %; Eosinophils # (auto) 0.25 K/uL (0-0.50); Eosinophils % (auto) 2.6 %; Immature Granulocytes # (auto) 0.07 K/uL (0.01-0.20); Immature Granulocytes % (auto) 0.7 %; Lymphocytes # (auto) 1.92 K/uL (1.2-3.4); Lymphocytes % (auto) 19.9 %; Monocytes # (auto) 0.78 K/uL (0.11-0.59); Monocytes % (auto) 8.1 %; Neutrophils # (auto) 6.59 K/uL (1.40-6.50); Neutrophils % (auto) 68.1 %; RBC Morphology Unremarkable
[2023-02-27] MEDS ORDERED: IRON SUCROSE 200 MG in 0.9 % SODIUM CHLORIDE 100 ML IV ONE (09:36)
[2023-02-27] MEDS ORDERED: SODIUM CHLORIDE 0.9% 250 ML IV PRN (09:37)
[2023-02-27 10:22] LABS: Estimated Average Glucose 169 mg/dl; Hemoglobin A1C 7.5 % (4.5-5.6)
--- NOTE | 2023-02-27 11:38 | Neurology Consultation ---
Date of Consultation February 27, 2023 Assessment & Plan (1) Weakness: Weakness explained by covid, profound anemia in the setting of parkinsonism. He is improved today without focal deficits. No further neurologic workup recommended. Telehealth Consultation Telehealth Information Telehealth Information: I performed this visit using a real-time telehealth connection between my location and the patients location ([facility]). After connecting through interactive tele-video, patient was identified by name and date of and/or wristband check.Patient (or authorized healthcare international sales representative) was informed that this was a telemedicine visit and it was being conducted confidentially over secure lines. My office door was closed and no one else was present in the room with me.Patient (or authorized healthcare international sales representative) provided consent to proceed with the visit, expressed an understanding of privacy and security of the telemedicine visit, and gave permission to have a hospital international sales representative in the room in order to assist with the visit and to conduct portions of the visit, as needed. I informed the patient (or authorized healthcare international sales representative) that I reviewed their record and presented the opportunity for them to ask any questions regarding the visit today. The patient agreed to participate. History of Present Illness Reason for Consultation: Weakness Requesting Physician: Dr. Arrington Attending Physician: Brain Arrington MD History of Present Illness Servando Miramontes is a 72 yo M presenting with 3 episodes of syncope with generalized weakness in the setting of covid. His at bedside reports he felt lightheaded and sat down on his walker seat. She went to get him water and she found him on the ground with a forehead abrasion. He has not been taking his BP at home but noted to be low here. He has seen neurology multiple times in the past few months for parkinsonism but feels that is well controlled. He otherwise feels better today and has been out of bed and able to ambulate. Allergies Allergy/AdvReac Type Severity Reaction Status Date / Time cefuroxime AdvReac Unknown Unknown Verified 02/26/23 01:20 fluphenazine [From Prolixin] AdvReac Unknown Unknown Verified 02/26/23 01:20 Home Medications Medication Instructions Recorded Confirmed Type aspirin 81 mg tablet,delayed 81 mg PO DAILY 09/27/19 02/26/23 History release (Adult Low Dose Aspirin) capsaicin 0.1 % topical cream 1 appln topical TID 09/27/19 02/26/23 History docusate sodium 100 mg capsule 100 mg PO BID constipation 09/27/19 02/26/23 History fluticasone propionate 50 1 sprays intranasal DAILY allergic 09/27/19 02/26/23 History mcg/actuation nasal rhinitis spray,suspension glucose 4 gram chewable tablet 4 gm PO Q15M PRN glucose 09/27/19 02/26/23 History (Dex4 Glucose) ketoconazole 2 % topical cream 1 appln topical BID 09/27/19 02/26/23 History lidocaine 5 % topical cream 1 appln topical BID PRN Skin 09/27/19 02/26/23 History Cleansing metformin 500 mg tablet 1,000 mg PO BID 09/27/19 02/26/23 History multivitamin 1 tab PO DAILY supplementation 09/27/19 02/26/23 History cholecalciferol (vitamin D3) 25 2,000 unit PO DAILY 10/14/22 02/26/23 History mcg (1,000 unit) capsule duloxetine 20 mg capsule,delayed 20 mg PO BID 10/14/22 02/26/23 History release empagliflozin 10 mg tablet 10 mg PO DAILY 10/14/22 02/26/23 History omeprazole 20 mg capsule,delayed 20 mg PO DAILY 10/14/22 02/26/23 History release quetiapine 100 mg tablet (Seroquel) 50 mg PO HS 10/14/22 02/26/23 History ropinirole 0.25 mg tablet 0.25 mg PO BID #60 tabs 10/14/22 02/26/23 Rx semaglutide (weight loss) 0.5 0.5 mg subcut Q7D 10/14/22 02/26/23 History mg/0.5 mL subcutaneous pen injector carbidopa 25 mg-levodopa 100 mg 2 tab PO QID 90 days #720 tabs 12/20/22 02/26/23 Rx tablet acetaminophen 325 mg capsule 650 mg PO TID PRN Pain 02/06/23 02/26/23 History (Tylenol) albuterol sulfate 90 mcg/actuation 2 inh inhalation Q6H PRN Shortness 02/06/23 02/26/23 History breath activated powder inhaler Of Breath Or Wheezing diclofenac sodium 1 % topical gel 4 g topical QID PRN Pain 02/06/23 02/26/23 History (Arthritis Pain (diclofenac)) food supplemt, lactose-reduced 1 ea PO DAILY 02/06/23 02/26/23 History (Ensure oral liquid) gabapentin 100 mg capsule 100 mg PO .COMPLEX 02/06/23 02/26/23 History lactulose 10 gram/15 mL (15 mL) 20 g PO BID PRN .. 02/06/23 02/26/23 History oral solution lisinopril 5 mg tablet 5 mg PO DAILY 02/06/23 02/26/23 History magnesium oxide 420 mg tablet 420 mg PO DAILY 02/06/23 02/26/23 History metoprolol succinate 25 mg 25 mg PO DAILY 02/06/23 02/26/23 History tablet,extended release 24 hr nut.tx.gluc.intol,lac-free,soy 1 ea PO DAILY 02/06/23 02/26/23 History (Glucerna oral liquid) sildenafil 100 mg tablet 100 mg PO DAILY PRN erectile 02/06/23 02/26/23 History dysfunction simvastatin 80 mg tablet 40 mg PO DAILY 02/06/23 02/26/23 History tizanidine 4 mg capsule 2 mg PO TID PRN back pain 02/06/23 02/26/23 History Patient History Medical History (Updated 02/26/23 @ 05:27 by Anthony Howell MD) Bipolar disorder Cervical spinal stenosis Diabetes mellitus Erectile dysfunction GERD (gastroesophageal reflux disease) Hyperlipidemia Insomnia Lung cancer Mild cognitive impairment Neurologic gait disorder Paranoid schizophrenia Tremor Surgical History S/P colonoscopy Family History Other Adopted child No pertinent family history Social History Smoking Status: Former smoker Second Hand Exposure: No; Do You Dip or Chew Tobacco: No; Hx Alcohol Use: Yes Hx Substance Use: No Preferred Language: Faroese Communication Ability: Effective Piano Mover Required: No Beliefs That Will Affect Care: None Current Living Situation: Spouse Feels Safe at Home: Yes Assistive Devices: Cane, Walker, Wheelchair and Other Review of Systems +loss of consciousness Physical Exam Neurological Examination: Mental Status: Awake and alert. Oriented to person, place, and time. Fluent. Comprehension intact. Affect appropriate. Cranial Nerves: II: hector grossly intact. III/IV/: Versions intact without nystagmus, no gaze preference. V: Facial sensation symmetric to light touch VII: Facial expression symmetric VIII: Hearing intact to voice IX/X: Palate elevates symmetrically XI: Shoulder shrug symmetric XII: Tongue midline Motor: Strength was symmetric and antigravity throughout. Pronator drift was absent. There were no abnormal movements. Reflexes: Unable to assess over telemedicine Results & Data Vital Signs (Past 12 Hours) Vital Signs Temp Pulse Pulse Resp BP BP Pulse Ox 02/27/23 11:19 36.6 C 69 18 103/63 98 02/27/23 11:30 36.6 C 68 18 102/64 02/27/23 11:00 36.5 C 66 16 109/68 02/27/23 10:46 36.5 C 72 18 104/58 L 02/27/23 10:18 36.6 C 74 18 90/48 L 02/27/23 08:00 63 02/27/23 07:51 36.4 C L 65 18 108/68 96 02/27/23 00:00 66 02/27/23 03:00 36.5 C 65 18 92/49 L 93 O2 Del Method 02/27/23 11:19 Room Air 02/27/23 11:30 02/27/23 11:00 02/27/23 10:46 02/27/23 10:18 02/27/23 08:00 02/27/23 07:51 Room Air 02/27/23 00:00 02/27/23 03:00 Room Air Laboratory Results Abnormal lab results 02/26/23 02/26/23 02/26/23 Range/Units 00:03 11:19 16:32 RBC (4.70-6.10) M/uL Hgb (14.0-18.0) g/dl Hct (42.0-52.0) % RDW Std Deviation (36.4-46.3) fL RDW Coeff of Angela (11.5-14.5) % Neut # (Auto) (1.40-6.50) K/uL [place] # (Auto) (0.11-0.59) K/uL BUN (6-23) mg/dl BUN/Creatinine Ratio (10-20) Glucose (70-99(Fasting)) mg/dl POC Glucose 159 H (70-99) mg/dl Calcium (8.6-10.3) mg/dl Magnesium (1.7-2.4) mg/dl ALT (7-52) U/L Troponin I High Sens 30.8 H (0-20) pg/ml Total Protein (6.0-8.3) gm/dl Globulin (2.5-4.0) gm/dl Crossmatch See Detail 02/27/23 02/27/23 02/27/23 Range/Units 00:30 03:59 07:36 RBC 1.82 L (4.70-6.10) M/uL Hgb 5.6 L* (14.0-18.0) g/dl Hct 17.3 L* (42.0-52.0) % RDW Std Deviation 49.9 H (36.4-46.3) fL RDW Coeff of Angela 15.4 H (11.5-14.5) % Neut # (Auto) 6.59 H (1.40-6.50) K/uL [place] # (Auto) 0.78 H (0.11-0.59) K/uL BUN (6-23) mg/dl BUN/Creatinine Ratio (10-20) Glucose (70-99(Fasting)) mg/dl POC Glucose 129 H 152 H (70-99) mg/dl Calcium (8.6-10.3) mg/dl Magnesium (1.7-2.4) mg/dl ALT (7-52) U/L Troponin I High Sens (0-20) pg/ml Total Protein (6.0-8.3) gm/dl Globulin (2.5-4.0) gm/dl Crossmatch 02/27/23 02/27/23 Range/Units 07:36 07:45 RBC (4.70-6.10) M/uL Hgb (14.0-18.0) g/dl Hct (42.0-52.0) % RDW Std Deviation (36.4-46.3) fL RDW Coeff of Angela (11.5-14.5) % Neut # (Auto) (1.40-6.50) K/uL [place] # (Auto) (0.11-0.59) K/uL BUN 28 H (6-23) mg/dl BUN/Creatinine Ratio 38.4 H (10-20) Glucose 153 H (70-99(Fasting)) mg/dl POC Glucose 181 H (70-99) mg/dl Calcium 8.3 L (8.6-10.3) mg/dl Magnesium 1.5 L (1.7-2.4) mg/dl ALT < 3 L (7-52) U/L Troponin I High Sens (0-20) pg/ml Total Protein 5.9 L (6.0-8.3) gm/dl Globulin 2.3 L (2.5-4.0) gm/dl Crossmatch
--- NOTE | 2023-02-27 14:58 | Hospitalist Progress Note ---
Date of Service February 27, 2023 Assessment & Plan (1) Anemia: Plan: No overt GI bleeding. We will repeat fecal occult blood. Hemoglobin 5.6 this morning. Blood transfusion ordered. Hematology consultation pending (2) Weakness: Plan: Correct low hemoglobin. Supportive care (3) COVID-19: Plan: Positive testing but no symptoms of any viral illness. Supportive care. (4) Fall: Plan: Due to weakness associated with anemia. No evidence of CVA. Appreciate neurol ogy consultation and recommendations (5) Parkinsonism: Plan: Stable. Continue current medical management (6) Bipolar disorder: Plan: Stable. Continue current medical management (7) Diabetes mellitus: Plan: ADA diet. Sliding scale coverage. Continue current medical management (8) Hyperlipidemia: Plan: Stable. Continue current medical management (9) Mild cognitive impairment: Plan: Present on admission. Now resolved. (10) Paranoid schizophrenia: Plan: Stable. Continue current medical management (11) Elevated troponin: Plan: Mild and nonspecific. No acute EKG changes. No chest pain (12) Abnormal weight loss: Plan: Rule out occult malignancy (13) Neurologic gait disorder: Plan: Continue OT and PT while hospitalized Plan The patient adamantly states he is going home tomorrow, February 28, regardless of any findings. Admission and Anticipated Discharge Date Admission Date: February 26, 2023 Subjective Alert and oriented. No acute problems. Hemoglobin was 5.6 this morning and he is receiving blood transfusion. Repeat fecal occult blood is pending. We will recheck hemoglobin level again this evening and again tomorrow morning. Hematology consultation pending. Neurology consultation noted. No evidence of CVA and no further work-up warranted. OT and PT assessments requested. The patient stated he is going home tomorrow regardless. He is COVID-positive but is not exhibiting any symptoms of a viral syndrome at this time. Review of Systems 2 Review of Systems: Constitutional-no fever or chills ENT-no blurred vision, no double vision, no epistaxis, no sore throat Respiratory-no cough, no wheezing, no shortness of breath Cardiac-no palpitations, no chest pain, no syncope GI-no nausea, vomiting, diarrhea, melena, hematochezia -no urinary retention, no urinary incontinence, no dysuria, no hematuria Musculoskeletal-no joint pain, no muscle tenderness Skin-no bruising, no rashes, no pruritus Neuro-no isolated weakness, no paresthesia, no weakness Psych-no depression, no anxiety Physical Exam Physical Exam: General-alert and oriented x3, no fevers, no chills HEENT-head atraumatic and normocephalic, pupils equal and reactive to light, extraocular muscles intact Neck-no lymphadenopathy or thyromegaly, trachea midline Chest-clear to auscultation percussion. No rales wheezing or rhonchi Cardiac-regular rate and rhythm, normal S1 and S2 Abdomen-normal bowel sounds, nontender, no hepatosplenomegaly Extremities-no cyanosis, clubbing, or edema Neuro-cranial nerves II through XII intact, motor and sensory function within normal limits, strength symmetrical , no focal deficits Psych-normal affect, normal mood Results & Data Results & Data Vital Signs (Past 12 Hours) Vital Signs Temp Pulse Pulse Resp BP BP Pulse Ox 02/27/23 11:30 36.6 C 68 18 102/64 02/27/23 11:00 36.5 C 66 16 109/68 02/27/23 10:46 36.5 C 72 18 104/58 L 02/27/23 10:18 36.6 C 74 18 90/48 L 02/27/23 14:22 36.6 C 47 L 16 106/67 02/27/23 14:07 36.5 C 69 18 104/64 02/27/23 13:51 36.8 C 68 18 102/65 02/27/23 13:28 36.5 C 68 18 104/68 02/27/23 12:16 36.3 C L 67 18 102/65 97 02/27/23 11:19 36.6 C 69 18 103/63 98 02/27/23 12:30 36.6 C 64 18 108/68 02/27/23 08:00 63 02/27/23 07:51 36.4 C L 65 18 108/68 96 02/27/23 03:00 36.5 C 65 18 92/49 L 93 O2 Del Method 02/27/23 11:30 02/27/23 11:00 02/27/23 10:46 02/27/23 10:18 02/27/23 14:22 02/27/23 14:07 02/27/23 13:51 02/27/23 13:28 02/27/23 12:16 Room Air 06/12/23 11:19 Room Air 02/27/23 12:30 02/27/23 08:00 02/27/23 07:51 Room Air 02/27/23 03:00 Room Air Laboratory Results 02/27/23 07:36 02/27/23 07:36 PG Care Time/CCT Total # of Minutes Spent Total Time Spent with Patient: Total time spent is greater than 50% in coordination of care (as documented) at patient's floor/unit and/or counseling patient: Coding Level of Care Code 32240 SUB INP/OBS CARE 3/50MIN Diagnoses Anemia D64.9 Weakness R53.1 COVID-19 U07.1 Fall W19.XXXA Parkinsonism G20 Bipolar disorder F31.9 Diabetes mellitus E11.9 Hyperlipidemia E78.5 Mild cognitive impairment G31.84 Paranoid schizophrenia F20.0 Elevated troponin R79.89 Abnormal weight loss R63.4 Neurologic gait disorder R26.9
--- NOTE | 2023-02-27 17:43 | Oncology Consultation ---
Date of Consultation February 27, 2023 Assessment & Plan (1) Anemia: (2) Abnormal weight loss: Plan -Normal bilirubin and LDH. Peripheral smear also shows no evidence to suggest hemolysis. -He has low ferritin of 14 which is suggestive of iron deficiency. The rate of decrease in hemoglobin over 24 to 48 hours concerning for acute blood loss. Would benefit from EGD, colonoscopy and possible capsule endoscopy. Patient has been evaluated by GI with plan for outpatient follow-up. Recommend IV Venofer 200 mg daily x3 doses -B12 level also low normal at 296 for which I have ordered methylmalonic acid level to rule out B12 deficiency -Recommend checking reticulocyte count, SPEP with DAK[place], quantitative immunoglobulins and serum free light chains to rule out hypoproliferative hematologic process as well as plasma cell dyscrasia. Thank you for this consult. Patient can follow-up with hematology on discharge from hospital for further work-up History of Present Illness Reason for Consultation: Anemia Attending Physician: Brain Arrington MD History of Present Illness 72-year-old gentleman with history of adenocarcinoma of the right lung for which he is s/p lobectomy in 2014. Patient presented with generalized weakness and recurrent falls. Labs obtained on admission revealed hemoglobin of 7.4 and dropped to 5.[address] abdomen and pelvis as well as CT head obtained on admission did not show any acute pathology. Allergies Allergy/AdvReac Type Severity Reaction Status Date / Time cefuroxime AdvReac Unknown Unknown Verified 02/26/23 01:20 fluphenazine [From Prolixin] AdvReac Unknown Unknown Verified 02/26/23 01:20 Home Medications Medication Instructions Recorded Confirmed Type aspirin 81 mg tablet,delayed 81 mg PO DAILY 09/27/19 02/26/23 History release (Adult Low Dose Aspirin) capsaicin 0.1 % topical cream 1 appln topical TID 09/27/19 02/26/23 History docusate sodium 100 mg capsule 100 mg PO BID constipation 09/27/19 02/26/23 History fluticasone propionate 50 1 sprays intranasal DAILY allergic 09/27/19 02/26/23 History mcg/actuation nasal rhinitis spray,suspension glucose 4 gram chewable tablet 4 gm PO Q15M PRN glucose 09/27/19 02/26/23 History (Dex4 Glucose) ketoconazole 2 % topical cream 1 appln topical BID 09/27/19 02/26/23 History lidocaine 5 % topical cream 1 appln topical BID PRN Skin 09/27/19 02/26/23 History Cleansing metformin 500 mg tablet 1,000 mg PO BID 09/27/19 02/26/23 History multivitamin 1 tab PO DAILY supplementation 09/27/19 02/26/23 History cholecalciferol (vitamin D3) 25 2,000 unit PO DAILY 10/14/22 02/26/23 History mcg (1,000 unit) capsule duloxetine 20 mg capsule,delayed 20 mg PO BID 10/14/22 02/26/23 History release empagliflozin 10 mg tablet 10 mg PO DAILY 10/14/22 02/26/23 History omeprazole 20 mg capsule,delayed 20 mg PO DAILY 10/14/22 02/26/23 History release quetiapine 100 mg tablet (Seroquel) 50 mg PO HS 10/14/22 02/26/23 History ropinirole 0.25 mg tablet 0.25 mg PO BID #60 tabs 10/14/22 02/26/23 Rx semaglutide (weight loss) 0.5 0.5 mg subcut Q7D 10/14/22 02/26/23 History mg/0.5 mL subcutaneous pen injector carbidopa 25 mg-levodopa 100 mg 2 tab PO QID 90 days #720 tabs 12/20/22 02/26/23 Rx tablet acetaminophen 325 mg capsule 650 mg PO TID PRN Pain 02/06/23 02/26/23 History (Tylenol) albuterol sulfate 90 mcg/actuation 2 inh inhalation Q6H PRN Shortness 02/06/23 02/26/23 History breath activated powder inhaler Of Breath Or Wheezing diclofenac sodium 1 % topical gel 4 g topical QID PRN Pain 02/06/23 02/26/23 History (Arthritis Pain (diclofenac)) food supplemt, lactose-reduced 1 ea PO DAILY 02/06/23 02/26/23 History (Ensure oral liquid) gabapentin 100 mg capsule 100 mg PO .COMPLEX 02/06/23 02/26/23 History lactulose 10 gram/15 mL (15 mL) 20 g PO BID PRN .. 02/06/23 02/26/23 History oral solution lisinopril 5 mg tablet 5 mg PO DAILY 02/06/23 02/26/23 History magnesium oxide 420 mg tablet 420 mg PO DAILY 02/06/23 02/26/23 History metoprolol succinate 25 mg 25 mg PO DAILY 02/06/23 02/26/23 History tablet,extended release 24 hr nut.tx.gluc.intol,lac-free,soy 1 ea PO DAILY 02/06/23 02/26/23 History (Glucerna oral liquid) sildenafil 100 mg tablet 100 mg PO DAILY PRN erectile 02/06/23 02/26/23 History dysfunction simvastatin 80 mg tablet 40 mg PO DAILY 02/06/23 02/26/23 History tizanidine 4 mg capsule 2 mg PO TID PRN back pain 02/06/23 02/26/23 History Patient History Medical History (Updated 02/26/23 @ 05:27 by Anthony Howell MD) Bipolar disorder Cervical spinal stenosis Diabetes mellitus Erectile dysfunction GERD (gastroesophageal reflux disease) Hyperlipidemia Insomnia Lung cancer Mild cognitive impairment Neurologic gait disorder Paranoid schizophrenia Tremor Surgical History S/P colonoscopy Family History Other Adopted child No pertinent family history Social History Smoking Status: Former smoker Second Hand Exposure: No; Do You Dip or Chew Tobacco: No; Hx Alcohol Use: Yes Hx Substance Use: No Preferred Language: German Communication Ability: Effective Jointer Machine Required: No Beliefs That Will Affect Care: None Current Living Situation: Spouse Feels Safe at Home: Yes Assistive Devices: Cane, Walker, Wheelchair and Other Results & Data Vital Signs (Past 12 Hours) Vital Signs Temp Pulse Pulse Resp BP BP Pulse Ox 02/27/23 15:52 36.6 C 61 18 109/61 02/27/23 11:30 36.6 C 68 18 102/64 02/27/23 11:00 36.5 C 66 16 109/68 02/27/23 10:46 36.5 C 72 18 104/58 L 02/27/23 10:18 36.6 C 74 18 90/48 L 02/27/23 15:52 36.6 C 61 18 109/61 02/27/23 14:52 36.3 C L 65 18 115/69 02/27/23 14:22 36.6 C 47 L 16 106/67 02/27/23 14:07 36.5 C 69 18 104/64 02/27/23 13:51 36.8 C 68 18 102/65 02/27/23 13:28 36.5 C 68 18 104/68 02/27/23 12:16 36.3 C L 67 18 102/65 97 02/27/23 11:19 36.6 C 69 18 103/63 98 02/27/23 12:30 36.6 C 64 18 108/68 02/27/23 08:00 63 02/27/23 07:51 36.4 C L 65 18 108/68 96 O2 Del Method 02/27/23 15:52 02/27/23 11:30 02/27/23 11:00 02/27/23 10:46 02/27/23 10:18 02/27/23 15:52 02/27/23 14:52 02/27/23 14:22 02/27/23 14:07 02/27/23 13:51 02/27/23 13:28 02/27/23 12:16 Room Air 02/27/23 11:19 Room Air 02/27/23 12:30 02/27/23 08:00 02/27/23 07:51 Room Air
--- NOTE | 2023-02-27 18:10 | Electrocardiogram Report ---
Test Reason : Blood Pressure : / mmHG Vent. Rate : 082 BPM Atrial Rate : 082 BPM P-R Int : 146 ms QRS Dur : 152 ms QT Int : 420 ms P-R-T Axes : 025 -77 009 degrees QTc Int : 490 ms Normal sinus rhythm Left axis deviation Right bundle branch block Abnormal ECG When compared with ECG of 29-JAN-2020 10:13, Premature ventricular complexes are no longer Present Confirmed by Reece Zapien ([id number]) on 02/27/2023 6:10:16 PM Referred By: REFERRED SELF Confirmed By:Darron Zapien
[2023-02-27] MEDS: QUEtiapine FUMARATE 25 MG TABLET PO SCH (20:17)
[2023-02-27 20:47] LABS: Reticulocyte % 5.8 % (0.5-2.0); Reticulocytes # 0.17 10^6/uL (0.02-0.10)
[2023-02-27 20:50] LABS: Immunoglobulin A 187.5 mg/dl (70-400); Immunoglobulin G 819.9 mg/dl (635-1741); Immunoglobulin M 31.9 mg/dl (45-281)
[2023-02-27 20:53] LABS: Hematocrit (blood only) 26.9 % (42.0-52.0); Hemoglobin 9.1 g/dl (14.0-18.0)
[2023-02-28 08:03] LABS: Basophils # (auto) 0.09 K/uL (0-0.2); Eosinophils # (auto) 0.31 K/uL (0-0.50); Eosinophils % (auto) 3.6 %; Hematocrit (blood only) 25.6 % (42.0-52.0); Hemoglobin 8.6 g/dl (14.0-18.0); Immature Granulocytes # (auto) 0.04 K/uL (0.01-0.20); Immature Granulocytes % (auto) 0.5 %; Lymphocytes # (auto) 1.66 K/uL (1.2-3.4); Lymphocytes % (auto) 19.3 %; Mean Corpuscular Hemoglobin 30.7 pg (25.0-34.0); Mean Corpuscular Hgb Conc 33.6 g/dL (32.0-36.0); Mean Corpuscular Volume 91.4 fL (80.0-100.0); Mean Platelet Volume 10.2 fL (9.4-12.4); Monocytes # (auto) 0.76 K/uL (0.11-0.59); Monocytes % (auto) 8.8 %; Neutrophils # (auto) 5.76 K/uL (1.40-6.50); Neutrophils % (auto) 66.8 %; Nucleated RBC # (auto) 0.03 K/uL (0-0.12); Nucleated RBC % (auto) 0.3 %; Platelet Count 228 K/uL (130-400); RDW Coefficient of Variation 16.1 % (11.5-14.5); RDW Standard Deviation 51.8 fL (36.4-46.3); White Blood Count 8.62 K/ul (4.8-10.8)
[2023-02-28 08:05] LABS: Albumin Globulin Ratio 1.5 (0.9-2); Albumin Level 3.6 gm/dl (3.4-5.0); BUN Creatinine Ratio 25.4 (10-20); Bilirubin,Total 0.7 mg/dl (0.2-1.0); Calcium 8.3 mg/dl (8.6-10.3); Creatinine Clr Calc Pharmacy 112.7 ml/min; Est GFR (African American) 118.9 ml/min; Est GFR (Non-African American) 102.6 ml/min; Globulin 2.4 gm/dl (2.5-4.0); Magnesium 1.6 mg/dl (1.7-2.4); Potassium 3.3 mmol/L (3.5-5.1)
[2023-02-28] MEDS: INSULIN ASPART PER UNIT CHARGE SC SCH ×2 (08:25→12:25)
[2023-02-28] MEDS: LANTUS PER UNIT CHARGE SC SCH (08:26)
[2023-02-28] MEDS: MAGNESIUM OXIDE 400 MG TAB PO SCH (08:38)
[2023-02-28] MEDS: MULTIVITAMIN TAB PO SCH (08:38)
[2023-02-28] MEDS: PANTOprazole 40 MG TAB PO SCH (08:38)
[2023-02-28] MEDS: CHOLECALCIFEROL 1,000 UNITS 25 MCG TAB PO SCH (08:38)
[2023-02-28] MEDS: GABAPENTIN 600 MG TAB PO SCH (08:38)
[2023-02-28] MEDS: SIMVASTATIN 40 MG TAB PO SCH (08:38)
[2023-02-28] MEDS: rOPINIRole HCL 0.25 MG TABLET PO SCH (08:38)
[2023-02-28] MEDS: DOCUSATE SODIUM 100 MG CAP PO SCH (08:39)
[2023-02-28] MEDS: METOPROLOL SUCC 25MG EXT REL TAB PO SCH (08:39)
[2023-02-28] MEDS: CARBIDOPA/LEVODOPA 25/100MG TAB PO SCH ×2 (08:39→12:31)
--- NOTE | 2023-02-28 08:53 | Pharmacy Report ---
Pharmacy Glycemic Short Note 2 - Date of Service February 28, 2023 - Glycemic Short BSG Results (Last 24 hours): 02/27/23 02/27/23 02/27/23 12:10 16:48 20:19 Glucose POC Glucose 186 H 165 H 169 H 02/28/23 02/28/23 07:22 07:47 Glucose 147 H POC Glucose 146 H OUTPATIENT ANTIDIABETIC REGIMEN: * Empagliflozin * Metformin * Semaglutide weekly * A1c: 7.5% (02/27/23) ASSESSMENT: 02/28/23: * BSGs slightly elevated yesterday, ranging 165-186 mg/dL - will tighten carb ratio today * Fasting BSG improved today 181 -> 146 mg/dL - will continue current basal today, but allow for increased dose tomorrow if downward trend does not continue * No new glycemic stressors identified 02/26/23: * Servando is a 72 yo T2DM who presented with progressive generalized weakness, increased frequency of falls, significant weight loss, and anemia. * His weight loss is being attributed to semaglutide. Per Hospitalist service, they plan to discontinue semaglutide. * Unknown degree of outpatient glycemic control. No A1c in past [place] records. Ordered for tomorrow. * Will order a one time dose of Lantus 0.2 units/kg to be given today. Reassess basal needs on 6/12 am. * Continue current Novolog orders (weight/stress 2-3). Add overnight checks > 200 mg/dL and trending upward. PLAN FOR INPATIENT GLYCEMIC CONTROL: * Hold outpatient oral diabetes medications * Basal insulin * Lantus 15-18 units SC daily * Bolus insulin * NovoLog per scale ACHS or Q6hrs while NPO * Goal Range: Low 100 mg/dL - High 150 mg/dL * Correction Factor: 25 mg/dL/unit * Nutritional / Prandial insulin per carb ratio of 1 unit per 8 grams CHO consumed
[2023-02-28] MEDS ORDERED: LANTUS PER UNIT CHARGE SC SCH (09:00)
[2023-02-28] MEDS ORDERED: POTASSIUM CHLORIDE CRTAB 20 MEQ TABCR PO STA (09:50)
[2023-02-28] MEDS ORDERED: IRON SUCROSE 200 MG in 0.9 % SODIUM CHLORIDE 100 ML IV ONE (10:00)
[2023-02-28] MEDS: DULoxetine HCL 20 MG CAP PO SCH (10:28)
--- NOTE | 2023-02-28 12:12 | Discharge Summary ---
Date of Service February 28, 2023 Principal Diagnosis Symptomatic iron deficiency anemia, suspected syncopal episode, COVID positivity without symptoms, hyperkalemia Discharge Exam General-alert and oriented x3, no fevers, no chills HEENT-head atraumatic and normocephalic, pupils equal and reactive to light, extraocular muscles intact Neck-no lymphadenopathy or thyromegaly, trachea midline Chest-clear to auscultation percussion. No rales wheezing or rhonchi Cardiac-regular rate and rhythm, normal S1 and S2 Abdomen-normal bowel sounds, nontender, no hepatosplenomegaly Extremities-no cyanosis, clubbing, or edema Neuro-cranial nerves II through XII intact, motor and sensory function within normal limits, strength symmetrical , no focal deficits Psych-normal affect, normal mood Discharge Data Allergies Allergy/AdvReac Type Severity Reaction Status Date / Time cefuroxime AdvReac Unknown Unknown Verified 02/26/23 01:20 fluphenazine [From Prolixin] AdvReac Unknown Unknown Verified 02/26/23 01:20 Consultations 02/26/23 01:07 ED Decision to Admit Stat 02/26/23 05:28 Consult Gastroenterology Routine 02/27/23 08:25 Consult Hematology Routine Consult Neurology Routine Ordered Studies 02/25/23 23:45 CT head/brain wo con Stat 02/26/23 02:07 CT Abd and Pelvis [CT abd pelvis wo con] Stat Hospital Course (1) Anemia: Multiple blood transfusions given this admission. Hemoglobin is now 8.6. Hematology consultation appreciated. Fecal occult blood is negative. He has received 2 doses of intravenous Venofer and will continue with oral iron replacement at discharge (2) Weakness: Resolved with transfusion (3) COVID-19: Positivity on nasal swab without symptoms (4) Fall: Suspected syncopal episode due to symptomatic anemia. Now resolved (5) Parkinsonism: Stable. Continue current medical management (6) Bipolar disorder: Stable. Continue current medical management (7) Diabetes mellitus: ADA diet. Sliding scale coverage while hospitalized. Continue current medical management (8) Hyperlipidemia: Stable. Continue current medical management (9) Mild cognitive impairment: Stable. Continue current medical management (10) Paranoid schizophrenia: Stable. Continue current medical management (11) Elevated troponin: Mild elevation of troponin. No evidence of acute coronary syndrome. No chest pain. 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 Follow-up with PCP to review lab tests that are still pending as ordered per hematology Total Time Total Time Spent Total Time Spent (In Minutes): 40 minutes Discharge Plan Discharge Items Patient Disposition: Home - Self-Care Reason For Visit: SYMPTOMATIC ANEMIA, ELEVATED TROPONIN Discharge Diagnosis: Symptomatic iron deficiency anemia, suspected syncope, hyperkalemia, COVID positivity without symptoms. Weight loss Activity: Resume your previous activity Non-emergency contact: Primary Care Provider Call non-emergency contact if: you have any medication questions and your symptoms worsen Follow-up/Referrals: Goldie Watkins PA-C [Primary Care Provider] - Diet: Carb Consistent or DM2 and Heart Healthy Addtl Attending Provider Instructions: Continue ferrous sulfate 325 mg twice daily indefinitely. Follow-up with primary care provider to review lab tests that were ordered by hardening machine operator while hospitalized and are pending at the time of discharge Addtl Enterprise Systems Administrator Provider Instructions: STOP metformin because of acidosis, this is a potentially dangerous condition of the blood that needs lab follow up with your family doctor. STOP Ozempic due to weight loss and poor appetite. Follow up diabetes regimen with Dr. Gonzalez. STOP aspirin because your blood count was dangerously low. Pending Studies at Discharge: Yes Studies:: Multiple anemia lab studies ordered by hematology Stand-Alone Forms: My [facility], Work/School Release, Smoking Cessation Medications and DC Order Prescriptions: New ferrous sulfate 325 mg (65 mg iron) tablet,delayed release (DR/EC) 325 mg PO BID Qty: 7 0RF Continued carbidopa-levodopa 25-100 mg tablet 2 tab PO QID 90 Days Qty: 720 3RF magnesium oxide 420 mg tablet 420 mg PO DAILY lisinopril 5 mg tablet 5 mg PO DAILY Ensure Liquid 1 ea PO DAILY Glucerna Liquid 1 ea PO DAILY acetaminophen [Tylenol] 325 mg capsule 650 mg PO TID PRN (Reason: Pain) diclofenac sodium [Arthritis Pain (diclofenac)] 1 % gel 4 g topical QID PRN (Reason: Pain) Rx Instructions: apply to single knee, ankle, foot; for foot includes sole/toes/top of foot lactulose 10 gram/15 mL (15 mL) solution 20 g PO BID PRN (Reason: ..) albuterol sulfate 90 mcg/actuation aerosol powdr breath activated 2 inh inhalation Q6H PRN (Reason: Shortness Of Breath Or Wheezing) quetiapine [Seroquel] 100 mg tablet 50 mg PO HS omeprazole 20 mg capsule,delayed release(DR/EC) 20 mg PO DAILY duloxetine 20 mg capsule,delayed release(DR/EC) 20 mg PO BID empagliflozin 10 mg tablet 10 mg PO DAILY ropinirole 0.25 mg tablet 0.25 mg PO BID Qty: 60 5RF gabapentin 100 mg capsule 100 mg PO .COMPLEX Rx Instructions: 600mg QAM 600MG in the afternoon and 900mg QPM metoprolol succinate 25 mg tablet extended release 24 hr 25 mg PO DAILY simvastatin 80 mg tablet 40 mg PO DAILY capsaicin 0.1 % cream 1 appln TOP TID docusate sodium 100 mg capsule 100 mg PO BID fluticasone propionate 50 mcg/actuation spray,suspension 1 sprays INTNAS DAILY glucose [Dex4 Glucose] 4 gram tablet,chewable 4 gm PO Q15M PRN (Reason: glucose) ketoconazole 2 % cream 1 appln TOP BID lidocaine 5 % cream 1 appln TOP BID PRN (Reason: Skin Cleansing) multivitamin Tablet 1 tab PO DAILY cholecalciferol (vitamin D3) 25 mcg (1,000 unit) capsule 2,000 unit PO DAILY sildenafil 100 mg tablet 100 mg PO DAILY PRN (Reason: erectile dysfunction) tizanidine 4 mg capsule 2 mg PO TID PRN (Reason: back pain) Discontinued semaglutide (weight loss) 0.5 mg/0.5 mL pen injector 0.5 mg subcut Q7D Rx Instructions: Take q mon aspirin [Adult Low Dose Aspirin] 81 mg tablet,delayed release (DR/EC) 81 mg PO DAILY metformin 500 mg tablet 1,000 mg PO BID Discharge Orders: Discharge Order (Routine); Ordered 02/28/23 Ordered By: Brain Arrington Admission Data Admit Date/Time: 02/26/23 03:16 Attending Provider: Brain Arrington Admit Provider: Anthony Howell Primary Care Provider: Goldie Watkins Other Providers: Anthony Howell ; Mo Hancock ; Baldomero Jordan ; Matt Hansen ; [facility] Coding Level of Care Code 55568 INP/OBS DISCH >30 MIN Diagnoses Anemia D64.9 Weakness R53.1 COVID-19 U07.1 Fall W19.XXXA Parkinsonism G20 Bipolar disorder F31.9 Diabetes mellitus E11.9 Hyperlipidemia E78.5 Mild cognitive impairment G31.84 Paranoid schizophrenia F20.0 Elevated troponin R79.89 Abnormal weight loss R63.4 Neurologic gait disorder R26.9
[2023-03-02 15:07] LABS: Free Kappa 24.2 mg/L (3.3-19.4); Free Kappa/Lambda Ratio 1.33 (0.26-1.65); Free Lambda 18.2 mg/L (5.7-26.3)
[2023-03-03 05:22] LABS: Albumin 3.6 g/dL (3.8-4.8); Alpha 1 Globulin 0.3 g/dL (0.2-0.3); Alpha 2 Globulin 0.6 g/dL (0.5-0.9); Beta-1-Globulin 0.4 g/dL (0.4-0.6); Beta-2-Globulin 0.2 g/dL (0.2-0.5); Gamma Globulin 0.8 g/dL (0.8-1.7); Monoclonal Protein Band 2 DNR g/dL (NONE DETECTED); Monoclonal Protein Band 3 DNR g/dL (NONE DETECTED)
== END 2023-02-28 13:45 | disposition home or self-care (01) | DRG 811 ==
LOC: ED 22:51 → 2S 02-26 03:16 → SUATTDRO 02-26 03:16 → 2S 02-26 05:06

== ENCOUNTER 2024-02-25 12:14 | Inpatient (IN) ==
--- NOTE | 2024-02-25 12:16 | Emergency Department Note ---
Impression & Plan Upper GI bleed, Anemia ED Provider Note NAME: ROCIO ZAMORANO AGE: 73 SEX: M : 1950 ARRIVES VIA: Ambulance INFORMANT: Patient, ED PROVIDER(S): Dar Cedillo MD CHIEF COMPLAINT: Vomiting blood, dark bowel movement MEDICAL DECISION MAKING: Patient presented due to concern for dark bowel movement as well as dark emesis earlier today. [facility] was established and blood work was obtained. Patient was ordered a PPI bolus and drip as well as a type and screen. Blood work shows a normal white count with a hemoglobin of 12.3. This is a 3 point drop compared to prior. Patient does have significant elevated BUN to creatinine ratio of 80. This is all highly suspicious given the patient's symptoms of an acute upper GI bleed. Patient initially was adamant about leaving the hospital as he states that he had a bad experience in 2022. Patient states he was discharged with anemia of unknown cause at that time and he was told by the [facility] that that should not have happened. I did have a conversation at length with the patient discussing the risks and benefits of leaving his medical advice. When asking for advice I suggested that he stay in the hospital given the concerning symptoms and blood work findings. I did discuss that if he went home this could worsen to the point where he could . After further discussion the patient was amenable to stay inpatient. I did speak with the on- call hospitalist service Dr. Hopkins and the patient was admitted to the medicine service. I also messaged the patient's primary loss prevention leader Dr. Nye to make him aware the patient was being admitted. Discussion w/ other healthcare providers: Dr. Hopkins inpatient medicine service Dr. Nye gastroenterology Prior /Outside records reviewed: I reviewed an EGD completed by Dr. Serrato from July 17, 2023. Patient does have a known history of iron deficiency anemia. Patient a small hiatal hernia gastritis Z-line irregular and the patient did have biopsies performed. Normal duodenal bulb and second portion of the duodenum also with biopsies at that time. I did review a colonoscopy from Dr. John Kaba from December 04, 2023. Patient did have a 4 cm polyp in the ascending colon resection was not attempted at that time. They have a 6 mm polyp which was removed. Nonbleeding internal hemorrhoids noted Differential diagnosis: Diverticulitis, AVM, coagulopathy, colitis, inflammatory bowel disease, malignancy, esophagitis, peptic ulcer disease, variceal bleed, gastritis, fissure, hemorrhoids, as well as other pathologies. Diagnostics, as interpreted by me: ECG: Normal sinus rhythm, rate of 93, wide QRS, left axis deviation, right bundle branch block pattern. No significant change from comparison February 25, 2023 Cardiac monitoring: An order was placed for continuous cardiac monitoring. The monitor shows a rate of 92 with sinus rhythm. Patient was placed on pulse oximetry Medical decision rules: None Imaging studies: none HPI: Patient presents due to concern for GI bleeding. Patient reportedly had dark emesis today. Patient did have dark bowel movement yesterday. The patient does not take any blood thinner medications. The patient reportedly does have a 40 mm polyp noted on prior colonoscopy and this is pending to be removed later this month with Dr. John Kaba. Patient denies any chest pains or shortness of breath. The patient did have some nausea and upset stomach which caused him to vomit this morning. Patient states that he is not had much in terms of an appetite. Patient states that [facility] but states that he is adamant about not staying in the hospital. Patient does not take blood thinning medications and no aspirin or antiplatelets PAST MEDICAL HISTORY: See Below PAST SURGICAL HISTORY: See Below SOCIAL HISTORY: See Below HOME MEDICATIONS: See Below ALLERGIES: See Below VITALS: See Below PHYSICAL EXAMINATION: GENERAL: NAD, non-toxic. Wearing glasses. EYE EXAM: Normal conjunctiva. PERRL, no anisocoria and EOM's grossly intact w/o pain. OROPHARYNX: Moist mucus membranes, grossly normal dentition. NECK: Trachea midline, no stridor. Supple, no nuchal rigidity, no adenopathy, non-tender. No signs of meningismus. FROM of the neck with good chin to chest and neck extension. LUNGS: Clear to auscultation. Normal chest wall mechanics. HEART: NSR, no MRG. ABDOMEN: Abdomen soft, non-tender, no masses, no rebound or guarding. BACK: No CVA TTP. SKIN: No rashes and no bruising. UPPER EXTREMITIES: Upper extremities are grossly normal. LOWER EXTREMITIES: Grossly normal, no edema. NEURO EXAM: A&O x3, cranial nerves II-XII grossly intact, normal speech, moves all 4 extremities. Past Med/Surg History Problem List (Updated 02/25/24 @ 19:17 by Dar Cedillo MD) Upper GI bleed (Acute) Stenosis of cervical spine with myelopathy Encounter for pre-operative examination Dizziness Balance disorder Abnormal weight loss COVID-19 (Acute) Fall (Acute) Weakness (Acute) Anemia (Acute) Lumbosacral radiculopathy Peripheral neuropathy Cervical myelopathy Elevated troponin Malignant neoplasm skin of arm Cervicalgia Parkinsonism Schizophrenia Diabetes mellitus YUMIKO (iron deficiency anemia) CHF (congestive heart failure) Tremor Cervical spinal stenosis GERD (gastroesophageal reflux disease) Insomnia Erectile dysfunction Medical History Gastritis Hiatal hernia Irregular heart beat Follows with Dr. Corbett. History of COVID-19 , resolved Uses self-applied continuous glucose monitoring device Gay 2 Adopted person Neurologic gait disorder Mild cognitive impairment Hyperlipidemia Lung cancer s/p RLL lobectomy, no radiation/chemo Bipolar disorder Surgical History History of esophagogastroduodenoscopy (EGD) 07/17/23 [facility] History of cardiac radiofrequency ablation 08/[address] [facility] "irregular heartbeat." follows with Dr. Corbett History of tonsillectomy S/P lobectomy of lung S/P colonoscopy Family History Other Adopted child No pertinent family history Social History Smoking Status: Former smoker Tobacco Type: Cigarettes Second Hand Exposure: No; Do You Dip or Chew Tobacco: No; Hx Alcohol Use: Yes Hx Substance Use: No Preferred Language: Ukrainian Communication Ability: Effective Biologics Specialist Required: No Beliefs That Will Affect Care: Mu-Ism Mu-Ism Beliefs: Oriental Orthodox Current Living Situation: Spouse Feels Safe at Home: Yes Assistive Devices: Denture - Upper, Denture - Lower, Glasses and Walker Allergies Allergies Allergy/AdvReac Type Severity Reaction Status Date / Time cefuroxime Allergy Unknown CAN'T Verified 02/25/24 15:00 REMEMBER fluphenazine [From Prolixin] Allergy Unknown CAN'T Verified 02/25/24 15:00 REMEMBER empagliflozin AdvReac Intermediate Weakness Verified 02/25/24 15:00 Home Meds Home Medications Medication Instructions Recorded Confirmed fluticasone propionate 50 1 sprays intranasal DAILY allergic 09/27/19 02/25/24 mcg/actuation nasal rhinitis spray,suspension multivitamin 1 tab PO QAM supplementation 09/27/19 02/25/24 cholecalciferol (vitamin D3) 25 2,000 unit PO QAM 10/14/22 02/25/24 mcg (1,000 unit) capsule quetiapine 100 mg tablet (Seroquel) 100 mg PO HS 10/14/22 02/25/24 albuterol sulfate 90 mcg/actuation 2 inh inhalation Q6H PRN Shortness 02/06/23 02/25/24 breath activated powder inhaler Of Breath Or Wheezing diclofenac sodium 1 % topical gel 4 g topical QID PRN MUSCLE/JOINT 02/06/23 02/25/24 (Arthritis Pain (diclofenac)) PAIN lactulose 10 gram/15 mL (15 mL) 20 g PO BID PRN Constipation 02/06/23 02/25/24 oral solution lisinopril 5 mg tablet 5 mg PO QAM 02/06/23 02/25/24 magnesium oxide 420 mg tablet 840 mg PO QPM 02/06/23 02/25/24 metoprolol succinate 25 mg 25 mg PO QAM 02/06/23 02/25/24 tablet,extended release 24 hr insulin glargine 100 unit/mL (3 8 unit subcut QPM 03/24/23 02/25/24 mL) subcutaneous pen (Lantus Solostar U-100 Insulin) psyllium husk 3.4 gram/5.4 gram 1 tbsp PO DAILY 03/24/23 02/25/24 oral powder (Metamucil) atorvastatin 40 mg tablet 40 mg PO HS 11/08/23 02/25/24 gabapentin 300 mg tablet,extended 300 mg PO TID 11/08/23 02/25/24 release 24 hr ammonium lactate 12 % topical cream 1 applic topical DAILY 02/25/24 02/25/24 duloxetine 60 mg capsule,delayed 60 mg PO DAILY 02/25/24 02/25/24 release sprinkle metformin 500 mg tablet,extended 1,000 mg PO BID 02/25/24 02/25/24 release 24 hr omeprazole 40 mg capsule,delayed 40 mg PO DAILYBB 02/25/24 02/25/24 release saliva stimulant comb. no.3 1 spray mucous membrane QID 02/25/24 02/25/24 (Biotene Moisturizing Mouth mucosal spray) Previous Rx's Medication Instructions Recorded entacapone 200 mg tablet 200 mg PO QID 30 days #120 tabs 11/08/23 carbidopa 25 mg-levodopa 100 mg 2.5 tab PO QID 90 days #900 tabs 02/15/24 tablet Results & Data (ED) Vital Signs Vital Signs - 24 hr 02/25/24 12:25 02/25/24 12:27 02/25/24 12:29 Temperature 36.7 C Temperature Source Oral Pulse Rate 93 H 90 Pulse Rate [Finger] Pulse Rhythm Regular Pulse Rhythm [Finger] Pulse Strength Normal Pulse Strength [Finger] Respiratory Rate 18 Respiratory Effort / Characteristics Non-Labored Spontaneous Respiratory Depth Normal Respiratory Pattern Regular Blood Pressure 110/91 Blood Pressure [Left Arm] Blood Pressure Mean 97 Blood Pressure Mean [Left Arm] Blood Pressure Position Lying Blood Pressure Position [Left Arm] Pulse Oximetry 93 93 Oxygen Delivery Method Room Air Room Air Sepsis Recent Fever Within 48 Hours No Sepsis New/Unexplained Change in Mental Status N/A Sepsis Action Taken by Nursing No Action Required 02/25/24 13:00 Temperature Temperature Source Pulse Rate Pulse Rate [Finger] 96 H Pulse Rhythm Pulse Rhythm [Finger] Regular Pulse Strength Pulse Strength [Finger] Normal Respiratory Rate 18 Respiratory Effort / Characteristics Non-Labored Respiratory Depth Normal Respiratory Pattern Regular Blood Pressure Blood Pressure [Left Arm] 100/69 Blood Pressure Mean Blood Pressure Mean [Left Arm] 79 Blood Pressure Position Blood Pressure Position [Left Arm] Lying Pulse Oximetry 94 Oxygen Delivery Method Room Air Sepsis Recent Fever Within 48 Hours Sepsis New/Unexplained Change in Mental Status Sepsis Action Taken by Alf Medications Current Medication List: was personally reviewed by me Laboratory Data Attestation: I reviewed the patient's lab results. 02/25/24 17:11 02/25/24 12:39 Lab Results 02/25/24 Range/Units 12:39 WBC 9.98 (4.8-10.8) K/ul RBC 3.92 L (4.70-6.10) M/uL Hgb 12.3 L (14.0-18.0) g/dl Hct 35.8 L (42.0-52.0) % MCV 91.3 (80.0-100.0) fL MCH 31.4 (25.0-34.0) pg MCHC 34.4 (32.0-36.0) g/dL RDW Std Deviation 42.0 (36.4-46.3) fL RDW Coeff of Angela 12.8 (11.5-14.5) % Plt Count 252 (130-400) K/uL MPV 10.7 (9.4-12.4) fL Immature Gran % (Auto) 0.3 % Neut % (Auto) 83.0 % Lymph % (Auto) 10.2 % Barrow % (Auto) 5.6 % Eos % (Auto) 0.3 % Baso % (Auto) 0.6 % Neut # (Auto) 8.28 H (1.40-6.50) K/uL Lymph # (Auto) 1.02 L (1.20-3.40) K/uL Barrow # (Auto) 0.56 (0.11-0.59) K/uL Eos # (Auto) 0.03 (0.00-0.50) K/uL Baso # (Auto) 0.06 (0.00-0.20) K/uL Immature Gran # (Auto) 0.03 (0.01-0.20) K/uL PT 11.8 (9.0-12.0) Seconds INR 1.1 (0.9-1.1) APTT 24 (21-31) Seconds PTT Ratio 0.9 Sodium 134 L (136-145) mmol/L Potassium 4.1 (3.5-5.1) mmol/L Chloride 99 (98-107) mmol/L Carbon Dioxide 25 (21-32) mmol/L Anion Gap 10 (3-11) BUN 56 H (6-23) mg/dl Creatinine 0.69 (0.6-1.4) mg/dl Est Cr Clr Drug Dosing 95.0 ml/min Est GFR ( Amer) 110.7 ml/min Est GFR (Non-Af Amer) 95.5 ml/min BUN/Creatinine Ratio 81.2 H (10-20) Glucose 183 H (70-99(Fasting)) mg/dl Calcium 9.3 (8.6-10.3) mg/dl Total Bilirubin 0.6 (0.2-1.0) mg/dl AST 18 (13-39) U/L ALT 10 (7-52) U/L Alkaline Phosphatase 60 (34-104) U/L Total Protein 6.8 (6.0-8.3) gm/dl Albumin 4.0 (3.4-5.0) gm/dl Globulin 2.8 (2.5-4.0) gm/dl Albumin/Globulin Ratio 1.4 (0.9-2) Blood Type A Positive Antibody Screen NEGATIVE Administered Medications Pantoprazole Sodium 40 mg/ (Dextrose) 100 mls @ 20 mls/hr IV Q5H ALANA Stop: 03/26/24 12:44 Last Admin: 02/25/24 18:24 Dose: 8 mg/hr, 20 mls/hr Documented By: Infusion: 02/25/24 18:24 Dose: Infused Documented By: Admin: 02/25/24 13:54 Dose: 8 mg/hr, 20 mls/hr Documented By: GREER Dextrose/Lactated Ringer's (D5w And Lactated Ringers) 1,000 mls @ 125 mls/hr IV .Q8H ALANA Stop: 03/26/24 15:59 Last Admin: 02/25/24 16:04 Dose: 125 mls/hr Documented By: GINA Insulin Aspart (Insulin Aspart Per Unit Charge) 0 units SC ACHS ALANA Stop: 03/26/24 16:29 Last Admin: 02/25/24 16:03 Dose: Not Given Documented By: GINA Co-signed By: LORENA Discontinued Medications Sodium Chloride (Nss) 500 mls @ 999 mls/hr IV .Q31M ALANA Stop: 02/25/24 13:00 Last Infusion: 02/25/24 14:34 Dose: Infused Documented By: Admin: 02/25/24 13:52 Dose: 999 mls/hr Documented By: GREER Pantoprazole Sodium 80 mg/ (Dextrose) 120 mls @ 480 mls/hr IV NOW ONE Stop: 02/25/24 12:36 Last Infusion: 02/25/24 13:55 Dose: Infused Documented By: Admin: 02/25/24 12:59 Dose: 480 mls/hr Documented By: GREER Lactated Ringer's (Lr) 500 mls @ 999 mls/hr IV .Q31M ONE Stop: 02/25/24 15:09 Last Infusion: 02/25/24 16:34 Dose: Infused Documented By: Admin: 02/25/24 15:43 Dose: 999 mls/hr Documented By: GINA Pantoprazole Sodium (Pantoprazole Bolus/Drip) 1 each IV NOW STA Stop: 02/25/24 12:23 Last Admin: 02/25/24 12:55 Dose: Not Given Documented By: TIAE Discharge Plan Visit Data Chief Complaint: Vomiting Stated Complaint: HEMATEMESIS ED Provider: Dar Cedillo Discharge Problem: Upper GI bleed, Anemia Patient Disposition: Admitted As Inpatient Discharge Instructions Interventions: ED Discharge Assessment Last Done: 02/25/24 17:08 Discharge Problem: Anemia Qualifiers: Anemia type: unspecified type Qualified Code(s): D64.9 - Anemia, unspecified
[2024-02-25] MEDS: PANTOPRAZOLE BOLUS/DRIP IV STA (12:55)
[2024-02-25] MEDS: PANTOprazole 80 MG in DEXTROSE 5% 100 ML IV ONE (12:59)
[2024-02-25 13:00] LABS: Basophils # (auto) 0.06 K/uL (0.00-0.20); Basophils % (auto) 0.6 %; Eosinophils # (auto) 0.03 K/uL (0.00-0.50); Eosinophils % (auto) 0.3 %; Hematocrit (blood only) 35.8 % (42.0-52.0); Hemoglobin 12.3 g/dl (14.0-18.0); Immature Granulocytes # (auto) 0.03 K/uL (0.01-0.20); Immature Granulocytes % (auto) 0.3 %; Lymphocytes # (auto) 1.02 K/uL (1.20-3.40); Lymphocytes % (auto) 10.2 %; Mean Corpuscular Hemoglobin 31.4 pg (25.0-34.0); Mean Corpuscular Hgb Conc 34.4 g/dL (32.0-36.0); Mean Corpuscular Volume 91.3 fL (80.0-100.0); Mean Platelet Volume 10.7 fL (9.4-12.4); Monocytes # (auto) 0.56 K/uL (0.11-0.59); Monocytes % (auto) 5.6 %; Neutrophils # (auto) 8.28 K/uL (1.40-6.50); Platelet Count 252 K/uL (130-400); RDW Coefficient of Variation 12.8 % (11.5-14.5); Red Blood Count 3.92 M/uL (4.70-6.10); White Blood Count 9.98 K/ul (4.8-10.8)
[2024-02-25 13:16] LABS: Albumin Globulin Ratio 1.4 (0.9-2); BUN Creatinine Ratio 81.2 (10-20); Bilirubin,Total 0.6 mg/dl (0.2-1.0); Calcium 9.3 mg/dl (8.6-10.3); Est GFR (African American) 110.7 ml/min; Est GFR (Non-African American) 95.5 ml/min; Globulin 2.8 gm/dl (2.5-4.0); Potassium 4.1 mmol/L (3.5-5.1); Total Protein 6.8 gm/dl (6.0-8.3)
[2024-02-25 13:40] LABS: INR 1.1 (0.9-1.1); Partial Thromboplastin Ratio 0.9; Partial Thromboplastin Time 24 Seconds (21-31); Prothrombin Time 11.8 Seconds (9.0-12.0)
[2024-02-25] MEDS: SODIUM CHLORIDE 0.9% 500 ML IV SCH (13:52)
[2024-02-25] MEDS: PANTOprazole 40 MG in DEXTROSE 5% MINI-B 100 ML IV SCH (13:54)
--- NOTE | 2024-02-25 14:23 | History & Physical Report ---
Date of Service February 25, 2024 Assessment & Plan (1) Upper GI bleed: Plan: Upper GI bleed With 1 episode of black tarry emesis, and melena. No lightheadedness, dizziness, syncope, presyncope Colonoscopy 12/04/2023: Nonbleeding internal hemorrhoids, 40 mm ascending colon polyp not attempted for resection at that time, 6 mm descending colon polyp removed with cold snare. Last EGD 07/17/2023: Small hiatal hernia. Mild erythema/inflammation of the stomach. Duodenal bulb and second portion of duodenum normal. Placed on PPI bolus and drip Patient reports he is not taking aspirin or anticoagulants OFFICE ENGINEER Has a history of nonischemic CAD, reports he had a reduced ejection fraction due to a large PVC burden which normalized after ablation last EF was normal Additional fluids ordered, n.p.o., IV FM Typed and crossed. Last hemoglobin 15, on admission this is acutely decreased to 12.3. Does not meet threshold criteria for transfusion; if patient has evidence of rapid loss with symptoms then may transfuse 1 unit for symptoms at that time. Asymptomatic at time of bedside assessment (2) Diabetes mellitus: Plan: Type II DM Hold home antiglycemic's. Continue basal bolus insulin while inpatient, Lantus dose reduced. Fluids switched to Langley's (3) Parkinsonism: Plan: Parkinsonism Continue carbidopa/levodopa once able to tolerate p.o. Continue entacapone once able to tolerate p.o. (4) CHF (congestive heart failure): Plan: History of reduced EF, subsequently improved Patient reports this is nonischemic, was due to a large PVC burden and tachycardia which was ablated with subsequent normalization. No history of stents, Lasix use, clinical CHF, bypass, leg swelling, orthopnea History of reduced EF, last echo 02/2023 with EF 60-65% and grade 1 diastolic dysfunction Borderline hypotensive, and without acute volume overload on admission Cautious use of fluids, continue to follow. No chest pain consistent with ACS Hypertension Lisinopril held in the setting of upper GI bleed and borderline hypotension Metoprolol switched to IV and dose reduced to prevent beta-ramon withdrawal, hold for SBP less than 100. Patient to take his medications this morning including metoprolol (5) Cervical myelopathy: Plan: Cervical stenosis with myelopathy Follows neurology as outpatient. MRI 08/2023 with mild to moderate stenosis. Following with neurology, no acute surgical intervention at this time Plan Chronic stable issues: History of lung cancer with right upper and right lower resections, no known recurrence or metastasis. Has not required chemo. Diet: N.p.o. Disposition: PCU CODE STATUS: Full code DVT prophylaxis: SCDs, pharmacal prophylaxis contraindicated due to GI bleed History of Present Illness Primary Care Provider: Delio Camara MD Servando is a 73-year-old male with a past medical history of DM 2 on basal bolus insulin, peripheral neuropathy, cervical stenosis, GERD, CHF, YUMIKO, parkinsonism, schizophrenia who presented to the ER with dark emesis. Endorses melena x 1 day. Patient has a 40 mm polyp pending removal with Dr. John Kaba. Endorses epigastric discomfort and nausea. Poor appetite. Patient initially refusing monitoring in the ER, [facility] He was started on PPI. Hemoglobin 12.3 from last 15.4. Servando is seen at the bedside. He reports that he has had 1 day of melena, and an episode of vomiting with dark black coffee-ground emesis. He does not have any abdominal pain. He does not have any lightheadedness or dizziness. No chest pain or chest pressure. No syncope. He is not currently taking aspirin. He does not take any NSAIDs or anticoagulants. He has seen gastroenterology, and is pending a follow-up for a large polyp removal with GI. He did have a prior scope which showed some stomach irritation but no ulcers. Endorses a history of nonischemic CAD. Had an ablation for PVCs in the past which did very well for him, and is not longer dyspnea. No denies history of heart failure, no history of stents or bipass. Had a history of HFrEF hich was thought to be due to tachycardia burden, resolved after ablation at [facility]. History of 4 operations for lung cancer, R lower and R upper lobectomy over 3 surgies for lung cancer. NO residual cancer, no metastatic cancer. Cervical myselopathy stable no recent changes Patient did take his morning medications including metoprolol today Medical History: Reviewed Medications: Reviewed Surgical History: Reviewed Family history: Reviewed Allergies: Reviewed Social History: No tobacco use in 11 years. Denies alcohol use. Code Status: Full Code Allergies Allergy/AdvReac Type Severity Reaction Status Date / Time cefuroxime Allergy Unknown CAN'T Verified 02/25/24 15:00 REMEMBER fluphenazine [From Prolixin] Allergy Unknown CAN'T Verified 02/25/24 15:00 REMEMBER empagliflozin AdvReac Intermediate Weakness Verified 02/25/24 15:00 Home Medications Medication Instructions Recorded Confirmed Type fluticasone propionate 50 1 sprays intranasal DAILY allergic 09/27/19 02/25/24 History mcg/actuation nasal rhinitis spray,suspension multivitamin 1 tab PO QAM supplementation 09/27/19 02/25/24 History cholecalciferol (vitamin D3) 25 2,000 unit PO QAM 10/14/22 02/25/24 History mcg (1,000 unit) capsule quetiapine 100 mg tablet (Seroquel) 100 mg PO HS 10/14/22 02/25/24 History albuterol sulfate 90 mcg/actuation 2 inh inhalation Q6H PRN Shortness 02/06/23 02/25/24 History breath activated powder inhaler Of Breath Or Wheezing diclofenac sodium 1 % topical gel 4 g topical QID PRN MUSCLE/JOINT 02/06/23 02/25/24 History (Arthritis Pain (diclofenac)) PAIN lactulose 10 gram/15 mL (15 mL) 20 g PO BID PRN Constipation 02/06/23 02/25/24 History oral solution lisinopril 5 mg tablet 5 mg PO QAM 02/06/23 02/25/24 History magnesium oxide 420 mg tablet 840 mg PO QPM 02/06/23 02/25/24 History metoprolol succinate 25 mg 25 mg PO QAM 02/06/23 02/25/24 History tablet,extended release 24 hr insulin glargine 100 unit/mL (3 8 unit subcut QPM 03/24/23 02/25/24 History mL) subcutaneous pen (Lantus Solostar U-100 Insulin) psyllium husk 3.4 gram/5.4 gram 1 tbsp PO DAILY 03/24/23 02/25/24 History oral powder (Metamucil) atorvastatin 40 mg tablet 40 mg PO HS 11/08/23 02/25/24 History entacapone 200 mg tablet 200 mg PO QID 30 days #120 tabs 11/08/23 02/25/24 Rx gabapentin 300 mg tablet,extended 300 mg PO TID 11/08/23 02/25/24 History release 24 hr carbidopa 25 mg-levodopa 100 mg 2.5 tab PO QID 90 days #900 tabs 02/15/24 02/25/24 Rx tablet ammonium lactate 12 % topical cream 1 applic topical DAILY 02/25/24 02/25/24 History duloxetine 60 mg capsule,delayed 60 mg PO DAILY 02/25/24 02/25/24 History release sprinkle metformin 500 mg tablet,extended 1,000 mg PO BID 02/25/24 02/25/24 History release 24 hr omeprazole 40 mg capsule,delayed 40 mg PO DAILYBB 02/25/24 02/25/24 History release saliva stimulant comb. no.3 1 spray mucous membrane QID 02/25/24 02/25/24 History (Biotene Moisturizing Mouth mucosal spray) Past Med/Surg History Problem List Upper GI bleed Stenosis of cervical spine with myelopathy Encounter for pre-operative examination Dizziness Balance disorder Abnormal weight loss COVID-19 (Acute) Fall (Acute) Weakness (Acute) Anemia (Acute) Lumbosacral radiculopathy Peripheral neuropathy Cervical myelopathy Elevated troponin Malignant neoplasm skin of arm Cervicalgia Parkinsonism Schizophrenia Diabetes mellitus YUMIKO (iron deficiency anemia) CHF (congestive heart failure) Tremor Cervical spinal stenosis GERD (gastroesophageal reflux disease) Insomnia Erectile dysfunction Medical History Gastritis Hiatal hernia Irregular heart beat Follows with Dr. Corbett. History of COVID-19 , resolved Uses self-applied continuous glucose monitoring device Gay 2 Adopted person Neurologic gait disorder Mild cognitive impairment Hyperlipidemia Lung cancer s/p RLL lobectomy, no radiation/chemo Bipolar disorder Surgical History History of esophagogastroduodenoscopy (EGD) 07/17/23 [facility] History of cardiac radiofrequency ablation 08/[address] [facility] "irregular heartbeat." follows with Dr. 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 NAD. Cooperative. HEENT: Atraumatic, normocephalic. Vision and hearing grossly intact Pulm: CTAB A&P. -wheezes, -rales, -rhonchi. Symmetrical chest rise. No increased work of breathing. No respiratory distress. Cardiac: Regular, tachycardic. Radial pulses intact and symmetrical. Abdominal: Nontender, nondistended, soft. BS present. Results & Data Results & Data Vital Signs (Past 12 Hours) Vital Signs Temp Pulse Pulse Resp BP BP Pulse Ox 02/25/24 13:00 96 H 18 100/69 94 02/25/24 12:29 36.7 C 90 18 110/91 93 02/25/24 12:27 93 H 02/25/24 12:25 93 O2 Del Method 02/25/24 13:00 Room Air 02/25/24 12:29 Room Air 02/25/24 12:27 02/25/24 12:25 Room Air PG Care Time/CCT Total # of Minutes Spent Total Time Spent with Patient: Total time spent is greater than 50% in coordination of care (as documented) at patient's floor/unit and/or counseling patient: Coding Level of Care Code 11574 INT INP/OBS CARE 3/75MIN Diagnoses Upper GI bleed K92.2 Diabetes mellitus E11.9 Parkinsonism G20 CHF (congestive heart failure) I50.9 Cervical myelopathy G95.9
[2024-02-25] MEDS ORDERED: SODIUM CHLORIDE 0.9% 250 ML IV PRN (14:58)
[2024-02-25] MEDS ORDERED: PHARMACY GLYCEMIC MGMT CONSULT PRN (15:12)
[2024-02-25] MEDS ORDERED: GLUCOSE 10 TAB/TUBE PO PRN (15:12)
[2024-02-25] MEDS ORDERED: GLUCOSE 40% GEL 15 GM TUBE PO PRN (15:12)
[2024-02-25] MEDS ORDERED: GLUCAGON FOR INJ 1 MG VIAL SQ PRN (15:12)
[2024-02-25] MEDS ORDERED: DEXTROSE 50% 50 ML SYRINGE IV PRN (15:12)
[2024-02-25] MEDS ORDERED: CARBOHYDRATES FOR HYPOGLYCEMIA PO PRN (15:12)
[2024-02-25] MEDS: LACTATED RINGER'S 500 ML IV ONE (15:43)
[2024-02-25] MEDS: INSULIN ASPART PER UNIT CHARGE SC SCH (16:03)
[2024-02-25] MEDS: D5W AND LACTATED RINGERS 1,000 ML IV SCH (16:04)
[2024-02-25 17:28] LABS: Hemoglobin 10.5 g/dl (14.0-18.0)
[2024-02-25] MEDS: LANTUS PER UNIT CHARGE SQ SCH (20:26)
[2024-02-25 23:18] LABS: Hematocrit (blood only) 31.4 % (42.0-52.0); Hemoglobin 10.5 g/dl (14.0-18.0)
[2024-02-26 06:47] LABS: Basophils # (auto) 0.11 K/uL (0.00-0.20); Basophils % (auto) 1.4 %; Eosinophils # (auto) 0.08 K/uL (0.00-0.50); Hematocrit (blood only) 30.8 % (42.0-52.0); Hemoglobin 10.4 g/dl (14.0-18.0); Immature Granulocytes # (auto) 0.02 K/uL (0.01-0.20); Immature Granulocytes % (auto) 0.3 %; Lymphocytes # (auto) 2.16 K/uL (1.20-3.40); Lymphocytes % (auto) 27.1 %; Mean Corpuscular Hemoglobin 31.1 pg (25.0-34.0); Mean Corpuscular Hgb Conc 33.8 g/dL (32.0-36.0); Mean Corpuscular Volume 92.2 fL (80.0-100.0); Mean Platelet Volume 10.5 fL (9.4-12.4); Monocytes # (auto) 0.78 K/uL (0.11-0.59); Monocytes % (auto) 9.8 %; Neutrophils # (auto) 4.82 K/uL (1.40-6.50); Neutrophils % (auto) 60.4 %; Platelet Count 224 K/uL (130-400); RDW Coefficient of Variation 13.1 % (11.5-14.5); RDW Standard Deviation 43.9 fL (36.4-46.3); Red Blood Count 3.34 M/uL (4.70-6.10); White Blood Count 7.97 K/ul (4.8-10.8)
--- NOTE | 2024-02-26 07:08 | Anesthesiology Consultation ---
Date of Service February 26, 2024 Assessment & Plan (1) Encounter for pre-operative examination: Chart Review Chart Review: Acceptable Risk for Surgery History Surgery Operation Date: 02/26/24 16:45 Proposed Procedures p Esophagogastroduodenoscopy Dr Hancock - Mo Burns Case, DO Height/Weight Height: 5 ft 8 in Weight: 75.1 kg Allergies Allergy/AdvReac Type Severity Reaction Status Date / Time cefuroxime Allergy Unknown CAN'T Verified 02/25/24 15:00 REMEMBER fluphenazine [From Prolixin] Allergy Unknown CAN'T Verified 02/25/24 15:00 REMEMBER empagliflozin AdvReac Intermediate Weakness Verified 02/25/24 15:00 Medications Home Medications Medication Instructions Recorded Confirmed Last Taken fluticasone propionate 50 1 sprays intranasal DAILY allergic 09/27/19 02/25/24 02/25/24 mcg/actuation nasal rhinitis spray,suspension multivitamin 1 tab PO QAM supplementation 09/27/19 02/25/24 02/25/24 cholecalciferol (vitamin D3) 25 2,000 unit PO QAM 10/14/22 02/25/24 02/25/24 mcg (1,000 unit) capsule quetiapine 100 mg tablet (Seroquel) 100 mg PO HS 10/14/22 02/25/24 02/24/24 albuterol sulfate 90 mcg/actuation 2 inh inhalation Q6H PRN Shortness 02/06/23 02/25/24 07/10/23 breath activated powder inhaler Of Breath Or Wheezing diclofenac sodium 1 % topical gel 4 g topical QID PRN MUSCLE/JOINT 02/06/23 02/25/24 09/04/23 (Arthritis Pain (diclofenac)) PAIN lactulose 10 gram/15 mL (15 mL) 20 g PO BID PRN Constipation 02/06/23 02/25/24 Unknown oral solution lisinopril 5 mg tablet 5 mg PO QAM 02/06/23 02/25/24 02/25/24 magnesium oxide 420 mg tablet 840 mg PO QPM 02/06/23 02/25/24 02/24/24 metoprolol succinate 25 mg 25 mg PO QAM 02/06/23 02/25/24 02/25/24 tablet,extended release 24 hr insulin glargine 100 unit/mL (3 8 unit subcut QPM 03/24/23 02/25/24 02/24/24 mL) subcutaneous pen (Lantus Solostar U-100 Insulin) psyllium husk 3.4 gram/5.4 gram 1 tbsp PO DAILY 03/24/23 02/25/24 02/25/24 oral powder (Metamucil) atorvastatin 40 mg tablet 40 mg PO HS 11/08/23 02/25/24 02/24/24 entacapone 200 mg tablet 200 mg PO QID 30 days #120 tabs 11/08/23 02/25/24 02/25/24 08:00 gabapentin 300 mg tablet,extended 300 mg PO TID 11/08/23 02/25/24 02/25/24 08:00 release 24 hr carbidopa 25 mg-levodopa 100 mg 2.5 tab PO QID 90 days #900 tabs 02/15/24 02/25/24 02/24/24 08:00 tablet ammonium lactate 12 % topical cream 1 applic topical DAILY 02/25/24 02/25/24 02/24/24 duloxetine 60 mg capsule,delayed 60 mg PO DAILY 02/25/24 02/25/24 02/25/24 release sprinkle metformin 500 mg tablet,extended 1,000 mg PO BID 02/25/24 02/25/24 02/25/24 08:00 release 24 hr omeprazole 40 mg capsule,delayed 40 mg PO DAILYBB 02/25/24 02/25/24 02/25/24 release saliva stimulant comb. no.3 1 spray mucous membrane QID 02/25/24 02/25/24 02/24/24 08:00 (Biotene Moisturizing Mouth mucosal spray) Active Medications Generic Name Dose Route Start Last Admin Trade Name Freq PRN Reason Stop Dose Admin Pantoprazole Sodium 40 mg/ 100 mls @ 20 mls/hr 02/25/24 12:45 02/26/24 03:41 Dextrose IV 03/26/24 12:44 8 mg/hr Q5H ALANA 20 mls/hr Administration 8 MG/HR Dextrose/Lactated Ringer's 1,000 mls @ 125 mls/hr 02/25/24 16:00 02/25/24 23:20 D5w And Lactated Ringers IV 03/26/24 15:59 125 mls/hr .Q8H ALANA Administration Insulin Aspart 0 units 02/25/24 16:30 02/25/24 21:04 Insulin Aspart Per Unit Charge SC 03/26/24 16:29 Not Given ACHS [facility] Insulin Glargine 4 units 02/25/24 21:00 02/25/24 20:26 Lantus Per Unit Charge SQ 03/26/24 20:59 4 units HS ALANA Administration Past Medical History Medical History (Updated 02/26/24 @ 07:08 by Christopher Vincent MD) Schizophrenia Parkinsonism Gastritis Hiatal hernia Irregular heart beat Follows with Dr. Corbett. History of COVID-19 , resolved Uses self-applied continuous glucose monitoring device Gay 2 Adopted person Neurologic gait disorder Mild cognitive impairment Hyperlipidemia Lung cancer s/p RLL lobectomy, no radiation/chemo Bipolar disorder Past Family History Family History Other Adopted child No pertinent family history Past Surgical History Surgical History History of esophagogastroduodenoscopy (EGD) 07/17/23 [facility] History of cardiac radiofrequency ablation 08/2023 [facility] "irregular heartbeat." follows with Dr. Corbett History of tonsillectomy S/P lobectomy of lung S/P colonoscopy Social History Smoking Status: Former smoker tobacco type: cigarettes Do You Dip or Chew Tobacco: No Hx Alcohol Use: Yes alcohol intake frequency: holidays/special occasions only Hx Substance Use: No substance use type: does not use Physical Exam Vital Signs Last Vital Signs Temp 36.7 C 02/25/24 12:29 Pulse 64 02/26/24 06:10 Resp 16 02/26/24 06:10 BP 118/73 02/26/24 06:10 Pulse Ox 98 02/26/24 06:10 O2 Del Method Room Air 02/26/24 06:10 Testing Laboratory Results 02/26/24 06:10 PT 11.8 Seconds (9.0-12.0) 02/25/24 12:39 INR 1.1 (0.9-1.1) 02/25/24 12:39 APTT 24 Seconds (21-31) 02/25/24 12:39 Blood Type A Positive 02/25/24 12:39 Antibody Screen NEGATIVE 02/25/24 12:39 02/26/24 02/25/24 05:53 20:25 POC Glucose 158 H 143 H Electrocardiogram Date: 02/25/24 Findings: + NSR @ (93) and + RBBB Echocardiogram Date: 02/26/23 EF: 60-65% LV Function: normal Other Findings: + diastolic dysfunction (mild) RV moderately dilated, mildly reduced funtion
[2024-02-26 07:11] LABS: Albumin Globulin Ratio 1.4 (0.9-2); Albumin Level 3.6 gm/dl (3.4-5.0); BUN Creatinine Ratio 51.5 (10-20); Bilirubin,Total 0.5 mg/dl (0.2-1.0); Calcium 8.3 mg/dl (8.6-10.3); Creatinine Clr Calc Pharmacy 96.4 ml/min; Est GFR (African American) 111.4 ml/min; Est GFR (Non-African American) 96.1 ml/min; Globulin 2.5 gm/dl (2.5-4.0); Potassium 3.3 mmol/L (3.5-5.1); Total Protein 6.1 gm/dl (6.0-8.3)
[2024-02-26] MEDS: SODIUM CHLORIDE 0.9% 500 ML IV SCH (08:42)
[2024-02-26] MEDS ORDERED: PROPOFOL IV EMULSION 10 MG/ML 20 ML VIAL IV ONE (08:47)
[2024-02-26] MEDS ORDERED: LIDOCAINE 2% 2 ML VIAL/AMP(20MG/ML) INFIL ONE (08:47)
--- NOTE | 2024-02-26 08:51 | Gastrointestinal Consultation ---
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 1. NPO for now. 2. Continue PPI ggt at 8 mg/hr. 3. Proceed with diagnostic EGD by Dr. Hancock today. 4. Further recommendations pending results of testing. Thank you for allowing us to participate in the care of this patient. If you have any questions or concerns, please do not hesitate to contact us. Supervising Physician Co-Signing Physician Notes Agree with ALISSA Leo as above Interviewed and examined patient and agree with above Abd: Soft, NT, ND, +BS Continue current therapy and supportive care Proceed with EGD now History of Present Illness Reason for Consultation: UGIB Requesting Physician: Dr. Hopkins Attending Physician: Clement Pérez History of Present Illness Patient is a 73 y.o. male with a history of DM, CHF, GERD, and YUMIKO admitted after a single episode of hematemesis and melena just prior to arrival. He endorsed epigastric pain and nausea upon arrival but those symptoms have since resolved. He denies any current pyrosis, abdominal pain, n/v or further evidence of GIB. Hemoglobin upon arrival was noted to be 12.3 and has dropped to 10.4. He has a history of colon polyps and did have a colonoscopy by Dr. Serrato on 09/05/23 which demonstrated an ascending colon not amenable to removal at that t [facility]. He was subsequently referred to Dr. Nye for EMR. The procedure was performed on 12/04/23 and the polyp measured 40 mm and was therefore not removed and he is pending an ESD. He denies any ASA, ibuprofen or anticoagulant use. Has been made NPO and started on a Protonix ggt. Allergies Allergy/AdvReac Type Severity Reaction Status Date / Time cefuroxime Allergy Unknown CAN'T Verified 02/26/24 08:18 REMEMBER fluphenazine [From Prolixin] Allergy Unknown CAN'T Verified 02/26/24 08:18 REMEMBER empagliflozin AdvReac Intermediate Weakness Verified 02/26/24 08:18 Home Medications Medication Instructions Recorded Confirmed Type fluticasone propionate 50 1 sprays intranasal DAILY allergic 09/27/19 02/25/24 History mcg/actuation nasal rhinitis spray,suspension multivitamin 1 tab PO QAM supplementation 09/27/19 02/25/24 History cholecalciferol (vitamin D3) 25 2,000 unit PO QAM 10/14/22 02/25/24 History mcg (1,000 unit) capsule quetiapine 100 mg tablet (Seroquel) 100 mg PO HS 10/14/22 02/25/24 History albuterol sulfate 90 mcg/actuation 2 inh inhalation Q6H PRN Shortness 02/06/23 02/25/24 History breath activated powder inhaler Of Breath Or Wheezing diclofenac sodium 1 % topical gel 4 g topical QID PRN MUSCLE/JOINT 02/06/23 02/25/24 History (Arthritis Pain (diclofenac)) PAIN lactulose 10 gram/15 mL (15 mL) 20 g PO BID PRN Constipation 02/06/23 02/25/24 History oral solution lisinopril 5 mg tablet 5 mg PO QAM 02/06/23 02/25/24 History magnesium oxide 420 mg tablet 840 mg PO QPM 02/06/23 02/25/24 History metoprolol succinate 25 mg 25 mg PO QAM 02/06/23 02/25/24 History tablet,extended release 24 hr insulin glargine 100 unit/mL (3 8 unit subcut QPM 03/24/23 02/25/24 History mL) subcutaneous pen (Lantus Solostar U-100 Insulin) psyllium husk 3.4 gram/5.4 gram 1 tbsp PO DAILY 03/24/23 02/25/24 History oral powder (Metamucil) atorvastatin 40 mg tablet 40 mg PO HS 11/08/23 02/25/24 History entacapone 200 mg tablet 200 mg PO QID 30 days #120 tabs 11/08/23 02/25/24 Rx gabapentin 300 mg tablet,extended 300 mg PO TID 11/08/23 02/25/24 History release 24 hr carbidopa 25 mg-levodopa 100 mg 2.5 tab PO QID 90 days #900 tabs 02/15/24 02/25/24 Rx tablet ammonium lactate 12 % topical cream 1 applic topical DAILY 02/25/24 02/25/24 History duloxetine 60 mg capsule,delayed 60 mg PO DAILY 02/25/24 02/25/24 History release sprinkle metformin 500 mg tablet,extended 1,000 mg PO BID 02/25/24 02/25/24 History release 24 hr omeprazole 40 mg capsule,delayed 40 mg PO DAILYBB 02/25/24 02/25/24 History release saliva stimulant comb. no.3 1 spray mucous membrane QID 02/25/24 02/25/24 History (Biotene Moisturizing Mouth mucosal spray) Patient History Medical History Schizophrenia Parkinsonism Gastritis Hiatal hernia Irregular heart beat Follows with Dr. Corbett. History of COVID-19 , resolved Uses self-applied continuous glucose monitoring device Gay 2 Adopted person Neurologic gait disorder Mild cognitive impairment Hyperlipidemia Lung cancer s/p RLL lobectomy, no radiation/chemo Bipolar disorder Surgical History History of esophagogastroduodenoscopy (EGD) 07/17/23 [facility] History of cardiac radiofrequency ablation 08/2023 [facility] "irregular heartbeat." follows with Dr. Corbett History of tonsillectomy S/P lobectomy of lung S/P colonoscopy Family History Other Adopted child No pertinent family history Social History Smoking Status: Former smoker Tobacco Type: Cigarettes Second Hand Exposure: No; Do You Dip or Chew Tobacco: No; Hx Alcohol Use: Yes Hx Substance Use: No Preferred Language: German Communication Ability: Effective Director Of Strategic Communications Required: No Beliefs That Will Affect Care: None Current Living Situation: Spouse Current Living Situation Comment: 1 story house Other Information That Helps Us Care for You: No Feels Safe at Home: Yes Safety Concerns: Feels Safe At This Time Assistive Devices: None Review of Systems Constitutional: no fatigue and no weakness Respiratory: no cough and no dyspnea Cardiovascular: no chest pain and no palpitations Gastrointestinal: as per Subjective / HPI Physical Exam Constitutional: WD/WN, vitals as above Eyes: EOM intact bilaterally Respiratory: normal respiratory effort, lungs clear to auscultation Cardiovascular: Rate/Rhythm: regular rate and regular rhythm Gastrointestinal (Abdomen): normal bowel sounds, soft, nontender, no hepatosplenomegaly Skin: + pallor Psychiatric: A+Ox3, euthymic affect Results & Data Vital Signs (Past 12 Hours) Vital Signs Temp Pulse Pulse Resp BP Pulse Ox O2 Del Method 02/26/24 08:18 36.3 C L 69 16 121/74 100 Room Air 02/26/24 07:11 64 02/26/24 06:10 64 16 118/73 98 Room Air 02/26/24 03:13 65 16 117/67 Room Air 02/25/24 22:33 67 02/25/24 21:00 72 22 109/65 92 Room Air Diagnostic Findings Abnormal lab results 02/25/24 02/25/24 02/25/24 Range/Units 12:39 15:41 17:11 RBC 3.92 L (4.70-6.10) M/uL Hgb 12.3 L 10.5 L (14.0-18.0) g/dl Hct 35.8 L 32.0 L (42.0-52.0) % Neut # (Auto) 8.28 H (1.40-6.50) K/uL Lymph # (Auto) 1.02 L (1.20-3.40) K/uL [place] # (Auto) (0.11-0.59) K/uL Sodium 134 L (136-145) mmol/L Potassium (3.5-5.1) mmol/L BUN 56 H (6-23) mg/dl BUN/Creatinine Ratio 81.2 H (10-20) Glucose 183 H (70-99(Fasting)) mg/dl POC Glucose 156 H (70-99) mg/dl Calcium (8.6-10.3) mg/dl 02/25/24 02/25/24 02/26/24 Range/Units 20:25 23:03 05:53 RBC (4.70-6.10) M/uL Hgb 10.5 L (14.0-18.0) g/dl Hct 31.4 L (42.0-52.0) % Neut # (Auto) (1.40-6.50) K/uL Lymph # (Auto) (1.20-3.40) K/uL [place] # (Auto) (0.11-0.59) K/uL Sodium (136-145) mmol/L Potassium (3.5-5.1) mmol/L BUN (6-23) mg/dl BUN/Creatinine Ratio (10-20) Glucose (70-99(Fasting)) mg/dl POC Glucose 143 H 158 H (70-99) mg/dl Calcium (8.6-10.3) mg/dl 02/26/24 02/26/24 Range/Units 06:10 07:44 RBC 3.34 L (4.70-6.10) M/uL Hgb 10.4 L (14.0-18.0) g/dl Hct 30.8 L (42.0-52.0) % Neut # (Auto) (1.40-6.50) K/uL Lymph # (Auto) (1.20-3.40) K/uL [place] # (Auto) 0.78 H (0.11-0.59) K/uL Sodium (136-145) mmol/L Potassium 3.3 L (3.5-5.1) mmol/L BUN 35 H D (6-23) mg/dl BUN/Creatinine Ratio 51.5 H (10-20) Glucose 161 H (70-99(Fasting)) mg/dl POC Glucose 150 H (70-99) mg/dl Calcium 8.3 L (8.6-10.3) mg/dl PG Care Time/CCT Total # of Minutes Spent Total Time Spent with Patient: Total time spent is greater than 50% in coordination of care (as documented) at patient's floor/unit and/or counseling patient: Coding Level of Care Code 58751 INT INP/OBS CARE 3/75MIN Diagnoses Upper GI bleed K92.2
--- NOTE | 2024-02-26 10:17 | GI REPORT ---
Patient Name: Servando Miramontes Procedure Date: 02/26/2024 9:20 AM Date of : 1950 Admit Type: Inpatient Age: 73 Gender: Male Attending MD: Mo Hancock DO, Procedure: Upper GI endoscopy Providers: Mo Hancock DO Referring MD: Mo Hancock DO Indications: Melena Medicines: Monitored Anesthesia Care Complications: No immediate complications. Estimated Blood Loss: Estimated blood loss: none. Procedure: Pre-Anesthesia Assessment: - Prior to the procedure, a History and Physical was performed, and patient medications and allergies were reviewed. The patient's tolerance of previous anesthesia was also reviewed. The risks and benefits of the procedure and the sedation options and risks were discussed with the patient. All questions were answered, and informed consent was obtained. Prior Anticoagulants: The patient has taken no anticoagulant or antiplatelet agents. ASA Grade Assessment: III - A patient with severe systemic disease. After reviewing the risks and benefits, the patient was deemed in satisfactory condition to undergo the procedure. After obtaining informed consent, the endoscope was passed under direct vision. Throughout the procedure, the patient's blood pressure, pulse, and oxygen saturations were monitored continuously. The Endoscope was introduced through the mouth, and advanced to the second part of duodenum. The upper GI endoscopy was accomplished without difficulty. The patient tolerated the procedure well. Findings: The examined esophagus was normal. One non-bleeding cratered gastric ulcer with no stigmata of bleeding was found in the cardia. The lesion was 15 mm in largest dimension. A medium-sized hiatal hernia was present. The examined duodenum was normal. Impression: - Normal esophagus. - Non-bleeding gastric ulcer with no stigmata of bleeding. - Medium-sized hiatal hernia. - Normal examined duodenum. - No specimens collected. Recommendation: - [facility]. - Advance diet as tolerated. - Continue present medications. Mo Hancock DO 02/26/2024 10:16:58 AM This report has been signed electronically. Note Initiated On: 02/26/2024 9:20 AM Number of Addenda: 0 I attest to the content of the Intraoperative Record and orders documented therein, exceptions below {[id number]}
--- NOTE | 2024-02-26 10:52 | Electrocardiogram Report ---
Test Reason : Blood Pressure : / mmHG Vent. Rate : 093 BPM Atrial Rate : 093 BPM P-R Int : 156 ms QRS Dur : 152 ms QT Int : 406 ms P-R-T Axes : 026 -84 033 degrees QTc Int : 504 ms Normal sinus rhythm Left axis deviation Right bundle branch block Abnormal ECG When compared with ECG of 25-FEB-2023 22:56, No significant change was found Confirmed by Reece Zapien ([id number]) on 02/26/2024 10:51:56 AM Referred By: REFERRED SELF Confirmed By:Darron Zapien
--- NOTE | 2024-02-26 11:35 | Discharge Summary ---
Discharge Summary Date of Service February 26, 2024 Principal Dx & Hospital Course #1 = Principal Diagnosis (1) Upper GI bleed: Upper GI bleed -patient presented to ED on 02/25/2024 with 1 day history of epigastric pain, melena, and coffee ground emesis. -EGD performed on 02/26/2024 revealed non bleeding gastric ulcer with no stigmata of bleeding -he reports no BM's today. He denies any further abdominal pain, nausea, vomiting. -hgb stable at 10.4 today. He does have history of anemia. -patient is to continue on pantoprazole 40mg BID as outpatient. -Patient reports no use of NSAIDs or anticoagulants - he was encouraged to continue to avoid NSAIDs in future -bland diet x 1 week then can resume diabetic diet. -he is also set up for polypectomy in the upcoming weeks due to 40mm ascending colon polyp from colonoscopy on 12/04/2023. (2) Diabetes mellitus: Type II DM Continue basal bolus insulin while inpatient, Lantus dose reduced. Fluids switched to [place]'s Patient can resume antiglycemic agents with diet re-initiation. (3) Parkinsonism: Parkinsonism Continue carbidopa/levodopa once able to tolerate p.o. Continue entacapone once able to tolerate p.o. (4) CHF (congestive heart failure): History of reduced EF, subsequently improved Patient reports this is nonischemic, was due to a large PVC burden and tachycardia which was ablated with subsequent normalization. No history of stents, Lasix use, clinical CHF, bypass, leg swelling, orthopnea History of reduced EF, last echo 02/2023 with EF 60-65% and grade 1 diastolic dysfunction Borderline hypotensive, and without acute volume overload on admission Cautious use of fluids, continue to follow. No chest pain consistent with ACS Hypertension -upon discharge patient to continue lisinopril -patient to continue metoprolol outpatient, hold SBP less than 100. (5) Cervical myelopathy: Cervical stenosis with myelopathy Follows neurology as outpatient. MRI 08/2023 with mild to moderate stenosis. Following with neurology, no acute surgical intervention at this time Plan Chronic stable issues: History of lung cancer with right upper and right lower resections, no known recurrence or metastasis. Has not required chemo. Diet: Clear liquid diet. Disposition: PCU CODE STATUS: Full code DVT prophylaxis: SCDs, pharmacal prophylaxis contraindicated due to GI bleed Admission HPI Per Admitting Provider Servando is a 73-year-old male with a past medical history of DM 2 on basal bolus insulin, peripheral neuropathy, cervical stenosis, GERD, CHF, YUMIKO, parkinsonism, schizophrenia who presented to the ER with dark emesis. Endorses melena x 1 day. Patient has a 40 mm polyp pending removal with Dr. John Kaba. Endorses epigastric discomfort and nausea. Poor appetite. Patient initially refusing monitoring in the ER, [facility] He was started on PPI. Hemoglobin 12.3 from last 15.4. Servando is seen at the bedside. He reports that he has had 1 day of melena, and an episode of vomiting with dark black coffee-ground emesis. He does not have any abdominal pain. He does not have any lightheadedness or dizziness. No chest pain or chest pressure. No syncope. He is not currently taking aspirin. He does not take any NSAIDs or anticoagulants. He has seen gastroenterology, and is pending a follow-up for a large polyp removal with GI. He did have a prior scope which showed some stomach irritation but no ulcers. Endorses a history of nonischemic CAD. Had an ablation for PVCs in the past which did very well for him, and is not longer dyspnea. No denies history of heart failure, no history of stents or bipass. Had a history of HFrEF hich was thought to be due to tachycardia burden, resolved after ablation at [facility]. History of 4 operations for lung cancer, R lower and R upper lobectomy over 3 surgies for lung cancer. NO residual cancer, no metastatic cancer. Cervical myselopathy stable no recent changes Patient did take his morning medications including metoprolol today Medical History: Reviewed Medications: Reviewed Surgical History: Reviewed Family history: Reviewed Allergies: Reviewed Social History: No tobacco use in 11 years. Denies alcohol use. Code Status: Full Code Discharge Exam Constitutional WD/WN, vitals as above Eyes PERRL, conjunctivae normal, anicteric sclerae ENMT external ear and nose normal, oropharynx normal Respiratory normal respiratory effort, lungs clear to auscultation Cardiovascular RRR, no murmur, no edema Gastrointestinal (Abdomen) normal bowel sounds, soft, nontender, no hepatosplenomegaly Musculoskeletal no cyanosis or clubbing, extremities motor strength 5/5 Skin no rashes, warm and dry Neurologic PERRL, EOMI, accommodation nl, no face palsy, no dysarthria Psychiatric A+Ox3, euthymic affect Updated Medication List Medication Instructions Recorded Confirmed Type fluticasone propionate 50 1 sprays intranasal DAILY allergic 09/27/19 02/25/24 History mcg/actuation nasal rhinitis spray,suspension multivitamin 1 tab PO QAM supplementation 09/27/19 02/25/24 History cholecalciferol (vitamin D3) 25 2,000 unit PO QAM 10/14/22 02/25/24 History mcg (1,000 unit) capsule quetiapine 100 mg tablet (Seroquel) 100 mg PO HS 10/14/22 02/25/24 History albuterol sulfate 90 mcg/actuation 2 inh inhalation Q6H PRN Shortness 02/06/23 02/25/24 History breath activated powder inhaler Of Breath Or Wheezing diclofenac sodium 1 % topical gel 4 g topical QID PRN MUSCLE/JOINT 02/06/23 02/25/24 History (Arthritis Pain (diclofenac)) PAIN lactulose 10 gram/15 mL (15 mL) 20 g PO BID PRN Constipation 02/06/23 02/25/24 History oral solution lisinopril 5 mg tablet 5 mg PO QAM 02/06/23 02/25/24 History magnesium oxide 420 mg tablet 840 mg PO QPM 02/06/23 02/25/24 History metoprolol succinate 25 mg 25 mg PO QAM 02/06/23 02/25/24 History tablet,extended release 24 hr insulin glargine 100 unit/mL (3 8 unit subcut QPM 03/24/23 02/25/24 History mL) subcutaneous pen (Lantus Solostar U-100 Insulin) psyllium husk 3.4 gram/5.4 gram 1 tbsp PO DAILY 03/24/23 02/25/24 History oral powder (Metamucil) atorvastatin 40 mg tablet 40 mg PO HS 11/08/23 02/25/24 History entacapone 200 mg tablet 200 mg PO QID 30 days #120 tabs 11/08/23 02/25/24 Rx gabapentin 300 mg tablet,extended 300 mg PO TID 11/08/23 02/25/24 History release 24 hr carbidopa 25 mg-levodopa 100 mg 2.5 tab PO QID 90 days #900 tabs 02/15/2406/11 Rx tablet ammonium lactate 12 % topical cream 1 applic topical DAILY 02/25/24 02/25/24 History duloxetine 60 mg capsule,delayed 60 mg PO DAILY 02/25/24 02/25/24 History release sprinkle metformin 500 mg tablet,extended 1,000 mg PO BID 02/25/24 02/25/24 History release 24 hr saliva stimulant comb. no.3 1 spray mucous membrane QID 02/25/24 02/25/24 History (Biotene Moisturizing Mouth mucosal spray) pantoprazole 40 mg tablet,delayed 40 mg PO BID #30 tabs 02/26/24 Rx release Hospital Stay Data Consultations 02/25/24 14:31 ED Decision to Admit Stat 02/25/24 17:08 Consult Gastroenterology Routine Procedures Performed Operation Date: 02/26/24 16:45 Actual Procedures p Esophagogastroduodenoscopy - Mo Burns Case, DO Pending Results Patient Have Any Pending Studies at Discharge: No Discharge Instructions Given to Patient (Per Discharging Provider) Mr. Miramontes, You were hospitalized for a gastric ulcer that was found on your endoscopy this [facility], 02/26/2024. -Please follow up with your family doctor within 1-2 weeks of discharge. -We have sent in pantoprazole 40mg twice daily to your pharmacy. Please take this a half hour before breakfast and before dinner. -We recommend that you follow up with your GI provider after discharge. -Please continue to avoid NSAIDs. -We recommend a bland diet for about 1-2 weeks and then can resume regular diet thereafter. Total Time Total Time Spent Total Time Spent (In Minutes): 40 minutes Coding Level of Care Code 00207 INP/OBS DISCH >30 MIN Diagnoses Upper GI bleed K92.2 Diabetes mellitus E11.9 Parkinsonism G20 CHF (congestive heart failure) I50.9 Cervical myelopathy G95.9
--- NOTE | 2024-02-26 12:02 | Anesthesiology Progress Note ---
Date of Service February 26, 2024 Anesthesia Post Procedure Vital Signs Vital Signs: Temp Pulse Pulse Resp BP BP Pulse Ox 02/26/24 11:56 36.4 C L 66 18 147/88 H 97 02/26/24 10:18 64 18 117/56 L 97 02/26/24 10:03 72 18 113/64 98 02/26/24 09:48 76 14 99/64 L 100 02/26/24 08:18 36.3 C L 69 16 121/74 100 02/26/24 07:11 64 02/26/24 06:10 64 16 118/73 98 02/26/24 03:13 65 16 117/67 02/25/24 22:33 67 02/25/24 21:00 72 22 109/65 92 02/25/24 19:00 77 17 107/70 93 02/25/24 18:28 75 16 112/70 93 02/25/24 17:37 79 20 113/78 93 02/25/24 17:37 93 02/25/24 17:36 82 20 113/78 93 02/25/24 16:42 76 02/25/24 15:25 82 20 111/73 94 02/25/24 13:00 96 H 18 100/69 94 02/25/24 12:29 36.7 C 90 18 110/91 93 02/25/24 12:27 93 H 02/25/24 12:25 93 O2 Del Method O2 Flow Rate 02/26/24 11:56 02/26/24 10:18 Room Air 02/26/24 10:03 Room Air 02/26/24 09:48 Oxymask 6 02/26/24 08:18 Room Air 02/26/24 07:11 02/26/24 06:10 Room Air 02/26/24 03:13 Room Air 02/25/24 22:33 02/25/24 21:00 Room Air 02/25/24 19:00 Room Air 02/25/24 18:28 Room Air 02/25/24 17:37 Room Air 02/25/24 17:37 Room Air 02/25/24 17:36 Room Air 02/25/24 16:42 02/25/24 15:25 02/25/24 13:00 Room Air 02/25/24 12:29 Room Air 02/25/24 12:27 02/25/24 12:25 Room Air Transfer of Care Handoff Completed per policy Notes Mental Status: alert / awake / arousable Patient Amnestic to Procedure: Yes Nausea / Vomiting: adequately controlled Pain: adequately controlled Airway Patency, RR, SpO2: stable & adequate BP & HR: stable & adequate Hydration State: stable & adequate Anesthetic Complications: no major complications apparent
[2024-02-27] MEDS ORDERED: METOPROLOL TARTRATE 1 MG/ML VIAL IV SCH (06:00)
== END 2024-02-26 11:58 | disposition home or self-care (01) | DRG 378 ==
LOC: ED 12:14 → EDINP 15:06 → SUATTDRO 15:06 → EDINP 17:08